=== PATIENT | female | born 1940 | race Caucasian/White ===

== ENCOUNTER 2017-04-30 01:05 | Observation (INO) | payer MEDICARE ==
[2017-04-30] VITALS (17 sets, daily range): BP systolic 102–143; BP diastolic 48–84; PULSE 60–123; RESP 15–20; TEMP 96.2–97.8; O2SAT 94–100
[~2017-04-30] VITALS: Ht 167.6 cm; Wt 71.6 kg
[~2017-04-30 01:05] MED LIST: AMLO5TAB22 PO; ASPI81TA82 PO; CALC600T34 PO; HYDR12.56 PO; KLOR20TA6 PO; LEVA500T PO; METO50TA PO; PROBCAP4 PO; VITA500S3 PO
[2017-04-30] MEDS ORDERED: SODIUM CHLOR 0.9% 1000 ML INJ 1,000 ML IV SCH (01:45)
[2017-04-30] MEDS ORDERED: SODIUM CHLORID 0.9% 500 ML INJ 500 ML IV ONE (01:45)
[2017-04-30] MEDS ORDERED: SODIUM CHLORIDE 0.9% FLUSH 10 ML FLUSH IVF PRN ×2 (01:45→03:30)
[2017-04-30] MEDS ORDERED: DILTIAZEM HCL 25 MG/5 ML VIAL IV ONE (01:45)
[2017-04-30 02:19] LABS: AUTOMATED NEUTROPHIL # 3.2 TH/MM3 (1.8-7.7); BASOPHIL # 0.1 TH/MM3 (0-0.2); BASOPHIL % 0.9 % (0.0-2.0); EOSINOPHIL # 0.3 TH/MM3 (0-0.4); EOSINOPHIL % 3.8 % (0.0-4.0); HEMATOCRIT 43.2 % (35.0-46.0); HEMO FLAGS DIFF FINAL; LYMPHOCYTE # 2.5 TH/MM3 (1.0-4.8); MEAN CELL VOLUME 87.1 FL (80.0-100.0); MEAN CORPUSCULAR HEMOGLOBIN 28.9 PG (27.0-34.0); MEAN CORPUSCULAR HGB CONC 33.2 % (32.0-36.0); NEUT % 50.3 % (16.0-70.0); PLATELET COUNT 277 TH/MM3 (150-450); RED BLOOD COUNT 4.96 MIL/MM3 (4.00-5.30); RED CELL DISTRIBUTION WIDTH 12.1 % (11.6-17.2); WHITE BLOOD COUNT 6.6 TH/MM3 (4.0-11.0)
--- NOTE | 2017-04-30 02:25 | RADRPT ---
EXAM DATE/TIME: 04/30/2017 02:14 [place] COMPARISON: CHEST SINGLE AP, November 16, 2015, 12:36. INDICATIONS : Shortness of breath starting today MEDICAL HISTORY : None. SURGICAL HISTORY : Pacemaker. ENCOUNTER: Initial ACUITY: 1 day PAIN SCORE: 0/10 LOCATION: Bilateral chest FINDINGS: 2 AP views of the chest. Dual-lead cardiac pacemaker in place. The lungs are clear. Cardiomediastinal silhouette within normal limits. No evidence of pleural effusion or pneumothorax. CONCLUSION: No acute cardiopulmonary disease identified. Richi Truong MD on April 30, 2017 at 2:23 Board Certified Radiologist. This report was verified electronically.
[2017-04-30 02:29] LABS: CHLORIDE 99 MEQ/L (98-107); POTASSIUM 3.1 MEQ/L (3.5-5.1); SODIUM (NA) 136 MEQ/L (136-145)
[2017-04-30 02:33] LABS: ANION GAP 11 MEQ/L (5-15); BICARBONATE 26.5 MEQ/L (21.0-32.0); BLOOD UREA NITROGEN 21 MG/DL (7-18); MAGNESIUM 1.9 MG/DL (1.5-2.5)
--- NOTE | 2017-04-30 02:35 | PD ---
HPI Chief Complaint: Respiratory Symptoms Time Seen by Provider: 01:42 Travel History International Travel<30 days: No Contact w/Intl Traveler<30days: No Traveled to known affect area: No History of Present Illness HPI 76-year-old female presents to the emergency department from the [facility] for complaint of shortness of breath. According the patient she just arrived by plane from [facility] where she has been for the past 3 weeks. Patient states she was very active while she was there and does not recall having any shortness of breath or febrile illness while in [place]. Patient denies chest pain. Patient's had no new swelling of the lower extremities or pain in the calves. No history of blood clots or DVT. Patient also denies history of congestive heart failure. Patient has history of sick sinus syndrome with previous pacemaker placement. Patient is under the care of Dr. ruiz as her primary care provider, Dr. Quiroz as her home weatherizing worker, and Dr. Villagran as her manager integrity. Patient has history of COPD. Patient has not been on antibiotic for one year. Patient states that while on the flight she noted some shortness of breath. Patient arrives here complaining of shortness of breath. Patient denies any hemoptysis or productive cough or fever. Patient denies any chest pain or pleuritic chest pain. Patient's had no change in her medications. Patient is unable to identify exacerbating or alleviating factors. PFSH Past Medical History Narrative Medical Asthma, COPD, sick sinus syndrome, dyslipidemia, paroxysmal atrial fibrillation , hypertension, pacemaker, left nephrectomy; no tobacco use no alcohol use and: Nursing notes reviewed Asthma: Yes Heart Rhythm Problems: Yes (6 sinus syndrome) Cancer: No Cardiovascular Problems: Yes (pt has a pacemaker) High Cholesterol: Yes Diabetes: No Diminished Hearing: No Endocrine: No Genitourinary: No Hepatitis: No Hiatal Hernia: No Hypertension: Yes Immune Disorder: No Musculoskeletal: No Neurologic: No Psychiatric: No Reproductive: No Respiratory: Yes (ASTHMA scarring on the lungs) Thyroid Disease: No Tubal Ligation: Yes Past Surgical History AICD: No Cardiac Surgery: Yes (pacemaker) Joint Replacement: No Pacemaker: Yes ( [employer]) Thoracic Surgery: Yes (LEFT NEPHRECTOMY 2001) Other Surgery: Yes Social History Alcohol Use: No Tobacco Use: No Substance Use: No Allergies-Medications (Allergen,Severity, Reaction): Coded Allergies: Chocolate (Verified Allergy, Severe, SOB, 04/30/17) Molds and Smuts (Verified Allergy, Severe, SHORTNESS OF BREATH, 04/30/17) Mustard (Verified Allergy, Severe, SOB, 04/30/17) Cabbage (Verified Allergy, Unknown, short of breath, 04/30/17) Reported Meds & Prescriptions Reported Meds & Active Scripts Active Reported Coq10 (Coenzyme Q10 (Ubidecarenone)) 50 Mg Cap 200 Mg PO DAILY Vitamin B-12 (Cyanocobalamin) 500 Mcg Tab 500 Mcg PO DAILY Vitamin D (Cholecalciferol) 2,000 Unit Cap 1,000 Mg PO DAILY Aspirin 81 (Aspirin) 81 Mg Tabdr 81 Mg PO DAILY K-Tab (Potassium Chloride) 20 Meq Tab 20 Meq PO BID Metoprolol Tartrate 50 Mg Tab 50 Mg PO BID Hydrochlorothiazide 12.5 Mg Tab 25 Mg PO DAILY Review of Systems Except as stated in HPI: all other systems reviewed are Neg General / Constitutional: No: Fever, Chills HENT: No: Headaches (okay) Cardiovascular: No: Chest Pain or Discomfort, Palpitations, Diaphoresis Respiratory: Positive: Shortness of Breath Gastrointestinal: No: Vomiting, Abdominal Pain Genitourinary: No: Flank Pain Musculoskeletal: No: Edema, Pain Skin: No Rash Neurologic: No: Weakness Psychiatric: Positive: Anxiety Hematologic/Lymphatic: No: Lymph Node Enlargement Physical Exam Narrative GENERAL: Well-developed elderly female in moderate distress with work of breathing SKIN: Warm and dry. HEAD: Normocephalic. EYES: No scleral icterus. No injection or drainage. NECK: Supple, trachea midline. No JVD or lymphadenopathy. CARDIOVASCULAR: Increased irregular irregular rate and rhythm without murmurs, gallops, or rubs. RESPIRATORY: Breath sounds equal bilaterally. No accessory muscle use. Lung sounds clear to auscultation in all kwan. GASTROINTESTINAL: Abdomen soft, non-tender, nondistended. MUSCULOSKELETAL: No cyanosis, or edema. Radial and dorsalis pedis pulses 2+ to palpation. BACK: Nontender without obvious deformity. No CVA tenderness. Data Data Last Documented VS Vital Signs Date Time Temp Pulse Resp B/P Pulse Ox O2 Delivery O2 Flow Rate FiO2 04/30/17 03:14 90 20 123/70 100 Nasal Cannula 2 04/30/17 01:21 97.8 Orders Complete Blood Count With Diff (04/30/17 01:42) Comprehensive Metabolic Panel (04/30/17 01:42) B-Type Natriuretic Peptide (04/30/17 01:42) D-Dimer (04/30/17 01:42) Act Partial Throm Time (Ptt) (04/30/17 01:42) Prothrombin Time / Inr (Pt) (04/30/17 01:42) Magnesium (Mg) (04/30/17 01:42) Ckmb (Isoenzyme) Profile (04/30/17 01:42) Troponin I (04/30/17 01:42) Urinalysis - C+S If Indicated (04/30/17 01:42) Blood Culture (04/30/17 01:42) Iv Access Insert/Monitor (04/30/17 01:42) Electrocardiogram (04/30/17 01:42) Ecg Monitoring (04/30/17 01:42) Oximetry (04/30/17 01:42) Oxygen Administration (04/30/17 01:42) Chest, Single Ap (04/30/17 01:42) Sodium Chloride 0.9% Flush (Ns Flush) (04/30/17 01:45) Sodium Chlorid 0.9% 500 Ml Inj (Ns 500 M (04/30/17 01:45) Sodium Chlor 0.9% 1000 Ml Inj (Ns 1000 M (04/30/17 01:45) Lactic Acid (04/30/17 01:42) Diltiazem Inj (Cardizem Inj) (04/30/17 01:45) Albuterol-Ipratropium Neb (Duoneb Neb) (04/30/17 03:00) Methylprednisolone So Succ Inj (Solumedr (04/30/17 03:00) Potassium Chloride (Kcl) (04/30/17 03:00) Diltiazem (Cardizem) (04/30/17 03:30) Admit Order (Ed Use Only) (04/30/17 ) Butcher Helper / Telemetry VIKTORIA.Q8H (04/30/17 03:21) Vital Signs (Adult) Q4H (04/30/17 03:21) Diet Heart Healthy (04/30/17 Breakfast) Activity Oob With Assistance (04/30/17 03:21) ^ Saline Lock (04/30/17 03:21) Resp Oxygen Jacobo C Titrat 1-4 L (04/30/17 ) Notify Dr: Other (04/30/17 03:21) Sodium Chloride 0.9% Flush (Ns Flush) (04/30/17 09:00) Sodium Chloride 0.9% Flush (Ns Flush) (04/30/17 03:30) Labs Laboratory Tests Test 04/30/17 04/30/17 01:50 03:00 White Blood Count 6.6 TH/MM3 Red Blood Count 4.96 MIL/MM3 Hemoglobin 14.3 GM/DL Hematocrit 43.2 % Mean Corpuscular Volume 87.1 FL Mean Corpuscular Hemoglobin 28.9 PG Mean Corpuscular Hemoglobin 33.2 % Concent Red Cell Distribution Width 12.1 % Platelet Count 277 TH/MM3 Mean Platelet Volume 9.2 FL Neutrophils (%) (Auto) 50.3 % Lymphocytes (%) (Auto) 38.0 % Monocytes (%) (Auto) 7.0 % Eosinophils (%) (Auto) 3.8 % Basophils (%) (Auto) 0.9 % Neutrophils # (Auto) 3.2 TH/MM3 Lymphocytes # (Auto) 2.5 TH/MM3 Monocytes # (Auto) 0.5 TH/MM3 Eosinophils # (Auto) 0.3 TH/MM3 Basophils # (Auto) 0.1 TH/MM3 CBC Comment DIFF FINAL Differential Comment Prothrombin Time 10.7 SEC Prothromb Time International 1.0 RATIO Ratio Activated Partial 28.5 SEC Thromboplast Time D-Dimer Quantitative (PE/DVT) 0.39 MG/L FEU Sodium Level 136 MEQ/L Potassium Level 3.1 MEQ/L Chloride Level 99 MEQ/L Carbon Dioxide Level 26.5 MEQ/L Anion Gap 11 MEQ/L Blood Urea Nitrogen 21 MG/DL Creatinine 0.97 MG/DL Estimat Glomerular Filtration 56 ML/MIN Rate Random Glucose 96 MG/DL Lactic Acid Level 3.1 mmol/L Calcium Level 9.4 MG/DL Magnesium Level 1.9 MG/DL Total Bilirubin 0.6 MG/DL Aspartate Amino Transf 20 U/L (AST/SGOT) Alanine Aminotransferase 21 U/L (ALT/SGPT) Alkaline Phosphatase 115 U/L Total Creatine Kinase 61 U/L Troponin I LESS THAN 0.02 NG/ML B-Type Natriuretic Peptide 476 PG/ML Total Protein 7.9 GM/DL Albumin 3.5 GM/DL Urine Color YELLOW Urine Turbidity CLEAR Urine pH 6.0 Urine Specific [place] 1.008 Urine Protein NEG mg/dL Urine Glucose (UA) NEG mg/dL Urine Ketones NEG mg/dL Urine Occult Blood NEG Urine Nitrite NEG Urine Bilirubin NEG Urine Leukocyte Esterase NEG Urine RBC 0-2 /hpf Urine WBC 0-2 /hpf Urine Squamous Epithelial 0-5 /hpf Cells Urine Bacteria NONE /hpf Microscopic Urinalysis Comment CULT NOT INDICATED MDM Medical Decision Making Medical Screen Exam Complete: Yes Emergency Medical Condition: Yes Medical Record Reviewed: Yes Interpretation(s) EKG: Atrial fibrillation with rapid ventricular response rate 110-[address] elevation or injury pattern change noted Differential Diagnosis Dyspnea, CHF, ACS, myocardial infarction, PE, pneumonia, exacerbation COPD, CHF , sepsis Narrative Course Patient placed on teletypesetter monitor IV access obtained EKG performed which is consistent with monitor for atrial fibrillation with rapid ventricular response no acute ST elevation or injury pattern change identified patient ordered weight -based Cardizem 15 mg administered partial dose of 10 mg IV to see if she could tolerate the medication from a rate as well as blood pressure standpoint with plan to administer full dose as necessary Patient clinically improved after 10 mg of Cardizem and additional 5 mg for the total 15 held, not administered. Is now 3 AM CBC with automated differential values are normal range coagulation studies are normal range d-dimer is not elevated at 0.39 CTA for PE protocol will not be performed chemistries remarkable for mild renal insufficiency BUN is 21 with a creatinine of 0.97 GFR 56 potassium is low at 3.1 oral potassium replacement provided bicarbonate and on gap eyes are normal range however lactic acid is elevated at 3.1 CK total is 61, not elevated troponin I is less than 0.02, not elevated BNP is elevated at 476; maintenance fluids at 1 25 cc per hour discontinued. Patient remains atrial fibrillation and intermittently having paced rhythm with occasional PVC as well however rate is variable between primarily 72 and infrequently 135; Cardizem infusion held at this time. Patient remains clinically improved; d-dimer is 0.39, not elevated therefore patient due to history of prior left nephrectomy and renal insufficiency will defer a CT pulmonary angiogram and patient is clinically improved with O2 saturation on room air 100% and no further tachycardia. Patient's case discussed with on-call [facility] medicine. Discussed with Dr Jansen Physician Communication Physician Communication call placed to [facility] call or contact centre manager MD Diagnosis Primary Impression: Paroxysmal a-fib Additional Impressions: Hypokalemia COPD exacerbation CHF (congestive heart failure) Qualified Code: I50.9 - Congestive heart failure, unspecified congestive heart failure chronicity, unspecified congestive heart failure type Admitting Information Admitting Physician Requests: Admit Guera Delgado MD Apr 30, 2017 02:35
[2017-04-30 02:36] LABS: ALT (GPT) 21 U/L (10-53); APTT (PATIENT) 28.5 SEC (24.3-30.1); AST (GOT) 20 U/L (15-37); GLOMERULAR FILTRATION RATE 56 ML/MIN (>89); PROTHROMBIN TIME - PATIENT 10.7 SEC (9.8-11.6)
[2017-04-30 02:38] LABS: TOTAL BILIRUBIN ADULT 0.6 MG/DL (0.2-1.0)
[2017-04-30 02:39] LABS: ALKALINE PHOSPHATASE 115 U/L (45-117)
[2017-04-30 02:40] LABS: CREATINE KINASE 61 U/L (26-192)
[2017-04-30] MEDS ORDERED: METO50TA PO (02:48)
[2017-04-30] MEDS ORDERED: COQ150CA PO (02:48)
[2017-04-30] MEDS ORDERED: ASPI-110 PO (02:48)
[2017-04-30] MEDS ORDERED: VITA200013 PO (02:48)
[2017-04-30] MEDS ORDERED: VITA500T4 PO (02:48)
[2017-04-30] MEDS ORDERED: POTA1TAB4 PO (02:48)
[2017-04-30] MEDS ORDERED: HYDR12.56 PO (02:48)
[2017-04-30] MEDS ORDERED: POTASSIUM CHLORIDE 20 MEQ CONTROLLED RELEASE TAB PO ONE (03:00)
[2017-04-30] MEDS ORDERED: methylPREDNISolone SOD SUCC 125 MG/2 ML VIAL IV PUSH ONE (03:00)
[2017-04-30] MEDS ORDERED: RESP: ALBUTEROL 2.5 MG/IPRATROPIUM 0.5 MG NEB (SCH) NEB ONE (03:00)
[2017-04-30 03:05] LABS: BLOOD, URINE NEG (NEG); GLUCOSE,URINE NEG (NEG); KETONE, URINE NEG (NEG); NITRITE,URINE NEG (NEG)
[2017-04-30 03:09] LABS: URINE COLOR YELLOW (YELLW/STRAW)
[2017-04-30 03:10] LABS: COMMENT (UR) CULT NOT INDICATED; CULTURE IF INDICATED CULT NOT INDICATED; RBC, URINE 0-2 /hpf (0-3); SQUAMOUS EPITHELIAL CELL URINE 0-5 /hpf (0-5); WBC, URINE 0-2 /hpf (0-5)
[2017-04-30] MEDS ORDERED: DILTIAZEM HCL 60 MG TAB PO ONE (03:30)
--- NOTE | 2017-04-30 08:04 | HHI.HP ---
HPI Service [facility] Hospitalists Primary Care Physician Frederick Currie MD Admission Diagnosis AFRVR; dyspnea; copd; hypokalemia; mild chf Chief Complaint: dyspnea, palpitations Travel History International Travel<30 Days: No Contact w/Intl Traveler <30 Da: No Traveled to Known Affected Are: No History of Present Illness 76-year-old female with history of paroxysmal atrial fibrillation presents to the emergency department from the [facility] for complaint of shortness of breath. According the patient she just arrived by plane from [facility] where she has been for the past 3 weeks seeing her 4-year-old grand child. Patient states she was very active while she was there and does not recall having any shortness of breath or febrile illness while in [place]. Patient denies chest pain. Patient's had no new swelling of the lower extremities or pain in the calves. No history of blood clots or DVT. Patient also denies history of congestive heart failure. 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 Patient has history of sick sinus syndrome with previous pacemaker placement. Patient is under the care of Dr. currie as her primary care provider, Dr. Quiroz as her motor vehicle emissions inspector, and Dr. Villagran as her facility manager. Patient has history of bronchiectasis. Patient has not been on antibiotic for over one year. Patient states that while on the flight she noted some shortness of breath and palpitations. Patient arrives here complaining of shortness of breath. Patient denies any hemoptysis or productive cough or fever. Patient denies any chest pain or pleuritic chest pain. Patient's had no recent change in her medications. Review of Systems Constitutional: DENIES: Diaphoretic episodes, Fatigue, Fever, Weight gain, Weight loss, Chills, Dizziness, Change in appetite, Night Sweats Endocrine: DENIES: Abnorml menstrual pattern, Heat/cold intolerance, Polydipsia , Polyuria, Polyphagia Eyes: DENIES: Blurred vision, Diplopia, Eye inflammation, Eye pain, Vision loss , Photosensitivity, Double Vision Ears, nose, mouth, throat: DENIES: Tinnitus, Hearing loss, Vertigo, Nasal discharge, Oral lesions, Throat pain, Hoarseness, Ear Pain, Running Nose, Epistaxis, Sinus Pain, Toothache, Odynophagia Respiratory: COMPLAINS OF: Shortness of breath, DENIES: Apneas, Cough, Snoring , Wheezing, Hemoptysis, Sputum production Cardiovascular: COMPLAINS OF: Palpitations, DENIES: Chest pain, Syncope, Dyspnea on Exertion, PND, Lower Extremity Edema, Orthopnea, Claudication Gastrointestinal: DENIES: Abdominal pain, Black stools, Bloody stools, BRB per rectum, Constipation, Diarrhea, GERD, Nausea, Reflux, Vomiting, Difficulty Swallowing, Anorexia, See HPI Integumentary: DENIES: Abnormal pigmentation, Pruritus, Rash, Nail changes, Breast masses, Breast skin changes, Nipple discharge Hematologic/lymphatic: DENIES: Bruising, Lymphadenopathy Neurologic: COMPLAINS OF: Tremor Psychiatric: DENIES: Anxiety, Confusion, Mood changes, Depression, Hallucinations, Agitation, Suicidal Ideation, Homicidal Ideation, Delusions, History of Bipolar, History of Schizophrenia Past Family Social History Past Medical History Aortic atherosclerosis Atypical mycobacterial infection of the lung Bronchiectasis Lumbar degenerative disc disease Extrapyramidal disorder Hypertension Hyperlipidemia Paroxysmal atrial fibrillation PSVT Past Surgical History She's had at least 2 bronchoscopies with the last one being in 2015 no malignant cells noted Left nephrectomy for benign tumor Pacemaker placement in 2009 Tonsillectomy and adenoidectomy as a child Reported Medications Aspirin 81 mg a day CoQ10 200 mg twice a day HCTZ 25 mg daily Metoprolol 50 mg twice daily Potassium extended release 10 mEq 2 tablets twice a day B12 500 g a day Vitamin D3 1000 units a day Allergies: Coded Allergies: Chocolate (Verified Allergy, Severe, SOB, 04/30/17) Molds and Smuts (Verified Allergy, Severe, SHORTNESS OF BREATH, 04/30/17) Mustard (Verified Allergy, Severe, SOB, 04/30/17) Cabbage (Verified Allergy, Unknown, short of breath, 04/30/17) Family History nc Social History Never a smoker, rare to no alcohol use 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 Physical Exam Vital Signs Vital Signs Date Time Temp Pulse Resp B/P Pulse Ox O2 Delivery O2 Flow Rate FiO2 04/30/17 05:21 102 04/30/17 05:00 97.0 123 16 133/70 99 04/30/17 04:21 72 20 108/79 98 04/30/17 03:44 106 20 143/84 98 Nasal Cannula 2 04/30/17 03:30 97 21 04/30/17 03:14 90 20 123/70 100 Nasal Cannula 2 04/30/17 02:44 74 20 127/48 100 Nasal Cannula 2 04/30/17 02:33 77 20 102/67 100 Nasal Cannula 4 04/30/17 02:33 94 4 04/30/17 02:16 76 20 102/67 98 Nasal Cannula 2 04/30/17 01:44 116 20 123/81 94 Nasal Cannula 4 04/30/17 01:30 100 20 98 Nasal Cannula 2 04/30/17 01:21 97.8 98 16 134/83 100 Physical Exam GENERAL: This is a well-nourished, well-developed patient, in no apparent distress. Alert and oriented. SKIN: No rashes, ecchymoses or lesions. Cool and dry. HEAD: Atraumatic. Normocephalic. No temporal or scalp tenderness. EYES: Pupils equal round and reactive. Extraocular motions intact. No scleral icterus. No injection or drainage. ENT: Nose without bleeding, purulent drainage or septal hematoma. Airway patent. NECK: Trachea midline. No JVD or lymphadenopathy. Supple, nontender, no meningeal signs. CARDIOVASCULAR: Irregularly irregular rhythm with rate in the low 100s without murmurs, gallops, or rubs. RESPIRATORY: Clear to auscultation. Breath sounds equal bilaterally. No wheezes , rales, or rhonchi. GASTROINTESTINAL: Abdomen soft, non-tender, nondistended. No hepato-splenomegaly , or palpable masses. No guarding. MUSCULOSKELETAL: Extremities without clubbing, cyanosis, or edema. No joint tenderness, effusion, or edema noted. No calf tenderness. NEUROLOGICAL: Awake and alert. Cranial nerves II through XII intact. Motor and sensory grossly within normal limits. Five out of 5 muscle strength in all muscle groups. Normal speech. Laboratory Laboratory Tests Test 04/30/17 04/30/17 01:50 03:00 White Blood Count 6.6 Red Blood Count 4.96 Hemoglobin 14.3 Hematocrit 43.2 Mean Corpuscular Volume 87.1 Mean Corpuscular Hemoglobin 28.9 Mean Corpuscular Hemoglobin 33.2 Concent Red Cell Distribution Width 12.1 Platelet Count 277 Mean Platelet Volume 9.2 Neutrophils (%) (Auto) 50.3 Lymphocytes (%) (Auto) 38.0 Monocytes (%) (Auto) 7.0 Eosinophils (%) (Auto) 3.8 Basophils (%) (Auto) 0.9 Neutrophils # (Auto) 3.2 Lymphocytes # (Auto) 2.5 Monocytes # (Auto) 0.5 Eosinophils # (Auto) 0.3 Basophils # (Auto) 0.1 CBC Comment DIFF FINAL Differential Comment Prothrombin Time 10.7 Prothromb Time International 1.0 Ratio Activated Partial 28.5 Thromboplast Time D-Dimer Quantitative (PE/DVT) 0.39 Sodium Level 136 Potassium Level 3.1 Chloride Level 99 Carbon Dioxide Level 26.5 Anion Gap 11 Blood Urea Nitrogen 21 Creatinine 0.97 Estimat Glomerular Filtration 56 Rate Random Glucose 96 Lactic Acid Level 3.1 Calcium Level 9.4 Magnesium Level 1.9 Total Bilirubin 0.6 Aspartate Amino Transf 20 (AST/SGOT) Alanine Aminotransferase 21 (ALT/SGPT) Alkaline Phosphatase 115 Total Creatine Kinase 61 Troponin I LESS THAN 0.02 B-Type Natriuretic Peptide 476 Total Protein 7.9 Albumin 3.5 Urine Color YELLOW Urine Turbidity CLEAR Urine pH 6.0 Urine Specific [place] 1.008 Urine Protein NEG Urine Glucose (UA) NEG Urine Ketones NEG Urine Occult Blood NEG Urine Nitrite NEG Urine Bilirubin NEG Urine Leukocyte Esterase NEG Urine RBC 0-2 Urine WBC 0-2 Urine Squamous Epithelial 0-5 Cells Urine Bacteria NONE Microscopic Urinalysis Comment CULT NOT INDICATED Date/Time Procedure Status Source Growth 04/30/17 02:00 Aerobic Blood Culture Received Blood Peripheral Pending 04/30/17 02:00 Anaerobic Blood Culture Received Blood Peripheral Pending Result Diagram: 04/30/17 0150 04/30/17 0150 Imaging Last 72 hours Impressions Chest X-Ray 04/30/17 0142 Signed Impressions: Service Date/Time: April 02:14 - CONCLUSION: No acute cardiopulmonary disease identified. Richi Truong MD Assessment and Plan Problem List: (1) Paroxysmal a-fib Status: Acute Plan: Recurrent issue. Her chads 2 vasc score is 3. We have discussed possible need or benefit of alternative oral anticoagulant agent or warfarin. We'll check echocardiogram. Attempt to better control rate. Correct K+ Likely source of her dyspnea. Dyspnea has resolved with better rate control. I have left a message for Dr. Peace and cardiology to discuss with me. (2) Hypokalemia Status: Acute Plan: Replace and repeat (3) CHF (congestive heart failure) Status: Acute Plan: No overt failure at this point. We'll check echo as it has been quite some time. (4) Hypertension Status: Chronic Plan: Continue medication. (5) Hyperlipidemia Status: Chronic Plan: Continue outpatient therapy. Code Status full Discussed Condition With Pt, ER provider. Problem Qualifiers (1) CHF (congestive heart failure): Qualified Code: I50.9 - Congestive heart failure, unspecified congestive heart failure chronicity, unspecified congestive heart failure type (2) Hypertension: Qualified Code: I10 - Essential hypertension Ra Jansen MD PhD Apr 30, 2017 08:04
--- NOTE | 2017-04-30 08:28 | EKG ---
Date Performed: 04/30/2017 Time Performed: 08:01:02 PTAGE: 76 years EKG: ATRIAL FIBRILLATION WITH RAPID VENTRICULAR RESPONSE NONSPECIFIC ST & T-WAVE ABNORMALITY ABN ORMAL RHYTHM ECG PREVIOUS TRACING : 04/30/2017 02.41 Compared to previous tracing, heart rate has increased. DOCTOR: Leandro Mena Interpretating Date/Time 04/30/2017 08:26:12
--- NOTE | 2017-04-30 08:32 | EKG ---
Date Performed: 04/30/2017 Time Performed: 01:42:22 PTAGE: 76 years EKG: ATRIAL FIBRILLATION WITH RAPID VENTRICULAR RESPONSE NONSPECIFIC ST DEPRESSION ABNORMAL ECG PREVIOUS TRACING : 11/16/2015 09.53 Compared to previous tracing, atrial fibrillation has repla angelique atrial paced rhythm, heart rate has increased. DOCTOR: Leandro Mena Interpretating Date/Time 04/30/2017 08:30:50
--- NOTE | 2017-04-30 08:32 | EKG ---
Date Performed: 04/30/2017 Time Performed: 02:41:45 PTAGE: 76 years EKG: ATRIAL FIBRILLATION NONSPECIFIC ST DEPRESSION ABNORMAL ECG PREVIOUS TRACING : 04/30/2017 01.42 No significant change from previous tracing noted. DOCTOR: Leandro Mena Interpretating Date/Time 04/30/2017 08:30:13
[2017-04-30] MEDS: SODIUM CHLORIDE 0.9% FLUSH 10 ML FLUSH IV FLUSH SCH ×2 (08:40→21:00)
[2017-04-30] MEDS ORDERED: PILL SPLITTER OTHER PRN (09:00)
[2017-04-30] MEDS ORDERED: CYANOCOBALAMIN 1,000 MCG TAB PO SCH (09:00)
[2017-04-30] MEDS ORDERED: CHOLECALCIFEROL (VIT D3) 1000 UNIT TAB PO SCH (09:00)
[2017-04-30] MEDS ORDERED: NON-FORMULARY DRUG (Coenzyme Q10 (Ubidecarenone) (Coq10) 200 MG) PO SCH (09:00)
[2017-04-30] MEDS ORDERED: ASPIRIN EC 81 MG TABEC PO SCH (09:00)
[2017-04-30 09:06] LABS: CHLORIDE 106 MEQ/L (98-107); POTASSIUM 3.3 MEQ/L (3.5-5.1); SODIUM (NA) 141 MEQ/L (136-145)
[2017-04-30] MEDS: POTASSIUM CHLORIDE 20 MEQ CONTROLLED RELEASE TAB PO SCH ×2 (09:06→20:53)
[2017-04-30] MEDS: METOPROLOL TARTRATE 50 MG TAB PO SCH ×2 (09:06→21:00)
[2017-04-30 09:09] LABS: ANION GAP 10 MEQ/L (5-15); BICARBONATE 24.9 MEQ/L (21.0-32.0); BLOOD UREA NITROGEN 17 MG/DL (7-18)
[2017-04-30] MEDS: DILTIAZEM HCL 60 MG TAB PO SCH ×3 (09:09→22:00)
[2017-04-30 09:12] LABS: GLOMERULAR FILTRATION RATE 79 ML/MIN (>89)
[2017-04-30 09:18] LABS: CREATINE KINASE 46 U/L (26-192)
[2017-04-30 15:54] LABS: HDL CHOLESTEROL 62.7 MG/DL (40.0-60.0)
--- NOTE | 2017-04-30 17:45 | ECHRPT ---
Indication: ATRIAL FIBRILLATION CONCLUSIONS Normal left ventricular size. [id number] concentric left ventricular hypertrophy. This study was not technically sufficient to allow for evaluation of left ventricular diastolic func tion. No regional wall motion abnormalities are present. The left ventricular systolic function is normal with an estimated ejection fraction in the range of 55-60%. The left atrial size is mildly dilated. Pacemaker wire seen in the right heart. Bi atrial enlargement. Structurally normal mitral valve. Gfry-pg-[id number] mitral valve regurgitation. BP: 109 / 72 HR: 109 Rhythm: Atrial fibrillation MEASUREMENTS (Male / Female) Normal Values Technical Quality:Fair 2D ECHO LV Diastolic Diameter PLAX 3.8 cm 4.2 - 5.9 / 3.9 - 5.3 cm LV Systolic Diameter PLAX 2.7 cm IVS Diastolic Thickness 1.0 cm 0.6 - 1.0 / 0.6 - 0.9 cm LVPW Diastolic Thickness 1.0 cm 0.6 - 1.0 / 0.6 - 0.9 cm LV Relative Wall Thickness 0.5 LVOT Diameter 1.9 cm Aortic Root Diameter 2.5 cm LA Systolic Diameter LX 3.2 cm 3.0 - 4.0 / 2.7 - 3.8 cm M-MODE AV Cusp Separation MM 1.6 cm DOPPLER AV Peak Velocity 129.3 cm/s AV Peak Gradient 6.7 mmHg AV Mean Gradient 4.0 mmHg AV Velocity Time Integral 22.6 cm LVOT Peak Velocity 73.8 cm/s LVOT Peak Gradient 2.2 mmHg LVOT Velocity Time Integral 12.0 cm LVOT Cardiac Index 2053.8 cm/minm AV Area Cont Eq vti 1.5 cm AV Area Cont Eq pk 1.6 cm Mitral E Point Velocity 74.9 cm/s LV E' Lateral Velocity 12.0 cm/s Mitral E to LV E' Lateral Ratio 6.2 LV E' Septal Velocity 8.5 cm/s Mitral E to LV E' Septal Ratio 8.8 TR Peak Velocity 210.0 cm/s TR Peak Gradient 17.6 mmHg PV Peak Velocity 65.4 cm/s PV Peak Gradient 1.7 mmHg FINDINGS LEFT VENTRICLE Normal left ventricular size. Cyln-la-reohrjnd concentric left ventricular hypertrophy. This study was not technically sufficient to allow for evaluation of left ventricular diastolic func tion. No regional wall motion abnormalities are present. The left ventricular systolic function is normal with an estimated ejection fraction in the range of 55-60%. RIGHT VENTRICLE Normal right ventricular size and systolic function. LEFT ATRIUM The left atrial size is mildly dilated. RIGHT ATRIUM The right atrial size is normal. ATRIAL SEPTUM Normal atrial septal thickness without atrial level shunting by limited color doppler interrogation. AORTA The aortic root and proximal ascending aorta are normal in size on limited imaging. MITRAL VALVE Structurally normal mitral valve. Ybgy-hk-xeukygak mitral valve regurgitation. AORTIC VALVE Trileaflet aortic valve. No aortic valve stenosis or regurgitation. TRICUSPID VALVE There is mild to moderate tricuspid valve regurgitation. Mild thickening of the tricuspid valve leaflets. PULMONARY VALVE The pulmonary valve is not well visualized. VESSELS The inferior vena cava is normal in size. PERICARDIUM No pericardial effusion. Prashanth Peace MD, FACC (Electronically Signed) Final Date:30 April 2017 17:44
[2017-05-01] VITALS: BP 131/66; PULSE 71; RESP 16; TEMP 95.8; O2SAT 98
[2017-05-01] MEDS: DILTIAZEM HCL 60 MG TAB PO SCH (05:33)
[2017-05-01 07:39] LABS: BICARBONATE 26.8 MEQ/L (21.0-32.0)
[2017-05-01 08:00] VITALS: BP 127/65; PULSE 60; RESP 18; TEMP 97.3; O2SAT 99
--- NOTE | 2017-05-01 08:27 | HHI.PR ---
Subjective Remarks Doing well. No chest pain or shortness of breath. Appears to have converted back to sinus rhythm yesterday afternoon. Objective Vitals Vital Signs Date Time Temp Pulse Resp B/P Pulse Ox O2 Delivery O2 Flow Rate FiO2 05/01/17 00:00 95.8 71 16 131/66 98 04/30/17 20:00 96.2 60 16 137/64 97 04/30/17 19:40 98 21 04/30/17 18:28 96.6 60 15 114/50 98 04/30/17 12:00 96.5 117 18 119/62 99 04/30/17 09:48 96.3 109 16 109/72 98 04/30/17 08:28 98 21 04/30/17 04/30/17 05/01/17 15:00 23:00 07:00 Intake Total 240 ml Balance 240 ml Intake Oral 240 ml # Voids 2 # Bowel Movements 0 GENERAL: No acute distress, alert and oriented, cooperative with exam. SKIN: Warm and dry. HEAD: Normocephalic. EYES: No scleral icterus. No injection or drainage. NECK: Supple, trachea midline. No JVD or lymphadenopathy. CARDIOVASCULAR: Regular rate and rhythm without murmurs, gallops, or rubs. Rate in 60s. RESPIRATORY: Breath sounds equal bilaterally. No accessory muscle use. GASTROINTESTINAL: Abdomen soft, non-tender, nondistended. MUSCULOSKELETAL: No cyanosis, or edema. Result Diagram: 04/30/17 0150 05/01/17 0650 Imaging Last 72 hours Impressions Chest X-Ray 04/30/17 0142 Signed Impressions: Service Date/Time: April 02:14 - CONCLUSION: No acute cardiopulmonary disease identified. Richi Truong MD Urinary Catheter: No Vascular Central Line Catheter: No A/P Problem List: (1) Paroxysmal a-fib Status: Acute Plan: Recurrent issue. Her chads 2 vasc score is 3. We have discussed possible need or benefit of alternative oral anticoagulant agent or warfarin. Echo noted and potassium corrected. Dyspnea has resolved with better rate control. Discussed with Dr. lorenzo in cardiology yesterday. Patient has upcoming appointment with her planer hand next week. She will discuss possibility of alternative oral anticoagulant and statin medication with her planer hand at visit. She was hesitant to start a different anticoagulant or statin at this point. (2) Hypokalemia Status: Acute Plan: Repeat value is 4.0 (3) CHF (congestive heart failure) Status: Acute Plan: Echo noted. CHF likely entered in error on previous records. No overt failure on exam. She may have some diastolic dysfunction given the dilatation of her atria. (4) Hypertension Status: Chronic Plan: Will decrease metoprolol and add long-acting calcium channel zonia. We'll stop the regular use of HCTZ but she may still use if she develops edema. (5) Hyperlipidemia Status: Chronic Plan: Continue outpatient therapy. She declines statin at this point. Discharge Planning Discharge home. Problem Qualifiers (1) CHF (congestive heart failure): Qualified Code: I50.9 - Congestive heart failure, unspecified congestive heart failure chronicity, unspecified congestive heart failure type (2) Hypertension: Qualified Code: I10 - Essential hypertension Ra Jansen MD PhD May 01, 2017 08:27
[2017-05-01] MEDS ORDERED: HYDR25TA5 PO (08:30)
[2017-05-01] MEDS ORDERED: POTA10CA PO (08:30)
[2017-05-01] MEDS ORDERED: METO25TA3 PO (08:30)
[2017-05-01] MEDS ORDERED: DILT-60 PO (08:30)
== END 2017-05-01 09:27 | disposition home or self-care (01) ==
LOC: PHED 01:05 → PHEDA 03:23 → UNDOADMIN 03:23 → PHEDA 03:23 → PH3A 04:37
PROVIDERS: ADMIT Family Medicine; ATTEND Family Medicine
DX: I11.0 Hypertensive heart disease with heart failure (principal); I50.9 Heart failure, unspecified; J44.1 Chronic obstructive pulmonary disease with (acute) exacerbation; R94.31 Abnormal electrocardiogram [ECG] [EKG]; R00.2 Palpitations; I48.0 Paroxysmal atrial fibrillation; I70.0 Atherosclerosis of aorta; E78.5 Hyperlipidemia, unspecified; E78.00 Pure hypercholesterolemia, unspecified; J45.909 Unspecified asthma, uncomplicated; F41.9 Anxiety disorder, unspecified; E87.6 Hypokalemia; Z90.5 Acquired absence of kidney; Z95.0 Presence of cardiac pacemaker; Z79.899 Other long term (current) drug therapy; Z79.82 Long term (current) use of aspirin
CPT/HCPCS: 71010; 80048; 80053; 80061; 81001; 82550; 83605; 83735; 83880; 84484; 85025; 85379; 85610; 85730; 87040; 93005; 93306; 94664; 96374; 99285; G0378; J2930; J7030; J7040

== ENCOUNTER 2017-11-20 07:05 | Day surgery (SDC) | payer MEDICARE ==
[~2017-11-20 07:05] MED LIST changes: -AMLO5TAB22 PO; +ASPI1TAB57 PO; -ASPI81TA82 PO; -CALC600T34 PO; +COQ150CA PO; +DILT120C50 PO; +HYDR25TA5 PO; -KLOR20TA6 PO; -LEVA500T PO; +METO25TA3 PO; +POTA10CA PO; +POTA1TAB4 PO; -PROBCAP4 PO; +VITA200013 PO; -VITA500S3 PO; +VITA500T4 PO
[2017-11-20] MEDS ORDERED: SODIUM CHLORIDE 0.9% 1000 ML IV SCH (07:45)
[2017-11-20] MEDS ORDERED: ceFAZolin 2 GM PREMIX 50 ML - gastrostomy and jejunostomy initial insertion IV SCH (07:45)
[2017-11-20] MEDS ORDERED: FURO20TA PO (08:05)
[2017-11-20] MEDS ORDERED: ATOR40TA16 PO (08:05)
[2017-11-20] MEDS ORDERED: VENTAER INH (08:05)
[2017-11-20] MEDS ORDERED: CART120C PO (08:05)
[2017-11-20] MEDS ORDERED: WARF-23 PO (08:05)
--- NOTE | 2017-11-20 09:37 | MA ---
cc: BRENNEN RAMOS MD DATE 11/20/2017 PROCEDURE PERFORMED The patient was anesthetized with Diprivan. A cardioversion was done under sync with 30 joules converting from atrial flutter to sinus rhythm. There were no complications. MD VICKY Caal/ALEA /8:56 AM /9:28 AM
--- NOTE | 2017-11-20 21:04 | EKG ---
Date Performed: 11/20/2017 Time Performed: 07:47:04 PTAGE: 77 years EKG: Atrial flutter with controlled rate Inferior ST elevation suggests early repolarization Inf erior T wave changes are nonspecific Compared to previous tracing rate is slower Abnormal ECG PREVIOUS TRACING : 04/30/2017 08.01 DOCTOR: Jay Cabral Interpretating Date/Time 11/20/2017 21:03:19
--- NOTE | 2017-11-20 21:04 | EKG ---
Date Performed: 11/20/2017 Time Performed: 09:17:10 PTAGE: 77 years EKG: Sinus rhythm Inferior T wave changes are nonspecific Left atrial abnormality Compared to previous tracing, patien t is no longer in atrial flutter Borderline ECG PREVIOUS TRACING : 11/20/2017 07.47 DOCTOR: Jay Cabral Interpretating Date/Time 11/20/2017 21:04:20
== END 2017-11-20 10:06 | disposition home or self-care (01) ==
LOC: HDOC 07:05 → HDIC 07:06 → HDOC 10:06
PROVIDERS: ATTEND Internal Medicine Cardiovascular Disease
DX: I48.92 Unspecified atrial flutter (principal); I48.0 Paroxysmal atrial fibrillation; I50.9 Heart failure, unspecified; Z79.01 Long term (current) use of anticoagulants
CPT/HCPCS: 00410; 92960; 93005; J7030

== ENCOUNTER 2018-03-11 16:34 | Inpatient (IN) | payer MEDICARE ==
[~2018-03-11] VITALS: Ht 167.6 cm; Wt 71.9 kg
[~2018-03-11 16:34] MED LIST changes: +ATOR40TA16 PO; +CART120C PO; -DILT120C50 PO; +FURO20TA PO; -HYDR12.56 PO; -HYDR25TA5 PO; -METO50TA PO; -POTA1TAB4 PO; +VENTAER INH; +WARF-23 PO
[2018-03-11 16:42] VITALS: BP 155/66; PULSE 60; RESP 18; TEMP 97.8; O2SAT 98
[2018-03-11] MEDS ORDERED: PROCHLORPERAZINE INJ 10 MG/2 ML VIAL IV PUSH ONE (17:30)
[2018-03-11] MEDS ORDERED: diphenhydrAMINE HCL 50 MG/ML VIAL IV PUSH ONE (17:30)
[2018-03-11 17:54] VITALS: BP 177/75; PULSE 76; RESP 17; O2SAT 99
[2018-03-11 18:07] LABS: AUTOMATED NEUTROPHIL # 7.6 TH/MM3 (1.8-7.7); BASOPHIL % 0.4 % (0.0-2.0); EOSINOPHIL % 0.3 % (0.0-4.0); HEMATOCRIT 44.1 % (35.0-46.0); HEMOGLOBIN 14.8 GM/DL (11.6-15.3); LYMPH % 9.7 % (9.0-44.0); LYMPHOCYTE # 0.9 TH/MM3 (1.0-4.8); MEAN CELL VOLUME 89.6 FL (80.0-100.0); MEAN CORPUSCULAR HGB CONC 33.4 % (32.0-36.0); MONO % 3.5 % (0.0-8.0); MONOCYTE # 0.3 TH/MM3 (0-0.9); NEUT % 86.1 % (16.0-70.0); PLATELET COUNT 317 TH/MM3 (150-450); RED BLOOD COUNT 4.93 MIL/MM3 (4.00-5.30); RED CELL DISTRIBUTION WIDTH 14.3 % (11.6-17.2); WHITE BLOOD COUNT 8.8 TH/MM3 (4.0-11.0)
[2018-03-11 18:16] LABS: PROTHROMBIN TIME - PATIENT 72.1 SEC (9.8-11.6)
[2018-03-11 18:31] LABS: INTERNATIONAL NORMALIZED RATIO 7.2 RATIO
[2018-03-11 18:39] LABS: ALKALINE PHOSPHATASE 134 U/L (45-117); ALT (GPT) 27 U/L (10-53); TOTAL BILIRUBIN ADULT 0.9 MG/DL (0.2-1.0); TOTAL PROTEIN 8.7 GM/DL (6.4-8.2)
[2018-03-11 18:43] LABS: ALBUMIN 3.5 GM/DL (3.4-5.0); AST (GOT) 23 U/L (15-37); BICARBONATE 27.9 MEQ/L (21.0-32.0); BLOOD UREA NITROGEN 12 MG/DL (7-18); CALCIUM 9.3 MG/DL (8.5-10.1); CHLORIDE 96 MEQ/L (98-107); CREATININE 1.08 MG/DL (0.50-1.00); GLOMERULAR FILTRATION RATE 49 ML/MIN (>89); GLUCOSE,RANDOM 123 MG/DL (74-106); SODIUM (NA) 135 MEQ/L (136-145)
--- NOTE | 2018-03-11 18:44 | RADRPT ---
EXAM DATE: 03/11/2018 6:36 PM EDT AGE/SEX: 77 years / Female INDICATIONS: Headache CLINICAL DATA: This is the patient's initial encounter. Patient reports that signs and symptoms have been present for 1 week and indicates a pain score of 4/10. MEDICAL/SURGICAL HISTORY: Cardiovascular disease. Hypertension. Asthma. Tubal ligation. Hysterec ashley. Pacemaker. RADIATION DOSE: 56.35 CTDI (mGy) COMPARISON: 02/26/2017. TECHNIQUE: CT of the head without contrast. Using automated exposure control and adjustment of the mA and/or kV according to patient size, radiation dose was kept as low as reasonably achievable to ob tain optimal diagnostic quality images. FINDINGS: Cerebrum: There are new bilateral subdural collections which are of mixed density. On the right ther e is an acute high density hemorrhage over the right parietal lobe measuring up to approximately 11 m m in greatest transverse diameter. There are lower attenuation areas over the right frontal lobe. On the left there are low attenuation collections over the frontal and parietal lobes with more ill-defi rose high density along the left parietal lobe which measures up to approximately 5 to 6 mm. There is ill-defined increased density along the falx as well. The anterior horns of the lateral ventricles ar e smaller than on the prior study and appear mildly compressed. No evidence of midline shift, mass le sonja, or acute infarction. No extraaxial fluid collections are seen. Posterior Fossa: The cerebellum and brainstem are intact. The 4th ventricle is midline. The cerebe llopontine angle is unremarkable. Extracranial: The visualized portion of the orbits is intact. Skull: The calvaria is intact. No evidence of skull fracture. CONCLUSION: 1. New, mixed density bilateral subdural hematomas with areas of bilateral high density more acute h emorrhage. 2. There is high density hemorrhage along the cerebral falx as well. 3. Compression of the anterior horns of the lateral ventricles which are smaller in size. There is n o midline shift. Electronically signed by: Gonzalo Ramírez MD 03/11/2018 6:43 PM EDT
--- NOTE | 2018-03-11 19:45 | PD ---
HPI Chief Complaint: Headache Time Seen by Provider: 16:56 Travel History International Travel<30 days: No Contact w/Intl Traveler<30days: No Traveled to known affect area: No History of Present Illness HPI This is a 77-year-old female who presents to the emergency department having associated with some generalized weakness and lethargy. She denies any difficulty walking or talking. She denies any vomiting. She is on Coumadin for atrial fibrillation. They went to an urgent care prior to arrival and they were told to come here for further imaging. Patient does have a history of migraines but she has not had a migraine in 20 years and this is unusual for her. 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) Migraines: No Renal Failure: No Seizures: No Sleep Apnea: No Thyroid Disease: No Ulcer: No ?: Not Tubal Ligation: Yes Past Surgical History Abdominal Surgery: No AICD: No Cardiac Surgery: Yes (pacemaker for sss) Ear Surgery: No Endocrine Surgery: No Eye Surgery: No Genitourinary Surgery: Yes (left nephectromy) Gynecologic Surgery: No Joint Replacement: No Oral Surgery: No Pacemaker: Yes ( [employer]) Thoracic Surgery: Yes (LEFT NEPHRECTOMY 2001) Other Surgery: Yes Social History Alcohol Use: Yes (occ) Tobacco Use: No Substance Use: No Allergies-Medications (Allergen,Severity, Reaction): Coded Allergies: apixaban (Verified Allergy, Severe, 11/20/17) chocolate flavor (Unverified Allergy, Severe, SOB, 06/02/17) mold (Unverified Allergy, Severe, SHORTNESS OF BREATH, 06/02/17) mustard (Unverified Allergy, Severe, SOB, 06/02/17) cabbage (Unverified Allergy, Unknown, short of breath, 06/02/17) Reported Meds & Prescriptions Reported Meds & Active Scripts Active Potassium Chloride ER (Potassium Chloride) 10 Meq Cap 10 Meq PO DAILY Metoprolol Tartrate 25 Mg Tab 25 Mg PO BID Reported Warfarin 5 Mg Tab 5 Mg PO DAILY Ventolin Hfa 18 GM Inh (Albuterol Sulfate) 90 Mcg/Act Aer 2 Puff INH Q4-6H PRN Atorvastatin (Atorvastatin Calcium) 40 Mg Tab 40 Mg PO HS Cartia Xt (Diltiazem ER 24 HR) 120 Mg Caper 120 Mg PO DAILY Furosemide 20 Mg Tab 20 Mg PO DAILY Coq10 (Coenzyme Q10 (Ubidecarenone)) 50 Mg Cap 200 Mg PO DAILY Vitamin B-12 (Cyanocobalamin) 500 Mcg Tab 500 Mcg PO DAILY Vitamin D (Cholecalciferol) 2,000 Unit Cap 1,000 Mg PO DAILY Review of Systems Except as stated in HPI: all other systems reviewed are Neg Physical Exam Narrative GENERAL: Well-appearing, frail elderly female SKIN: Focused skin assessment warm and dry. HEAD: Atraumatic. Normocephalic. EYES: Pupils equal and round. No injection or drainage. ENT: Moist mucous membranes NECK: Trachea midline. CARDIOVASCULAR: Regular rate and rhythm. No murmur appreciated. RESPIRATORY: Clear to auscultation. Breath sounds equal bilaterally. GASTROINTESTINAL: Abdomen soft, non-tender, nondistended. MUSCULOSKELETAL: No obvious deformities. NEUROLOGICAL: Awake and alert. No obvious cranial nerve deficits. No dysarthria or aphasia. Resting tremor in the left upper extremity, no upper extremity ataxia PSYCHIATRIC: Appropriate mood and affect; insight and judgment normal. Data Data Last Documented VS Vital Signs Date Time Temp Pulse Resp B/P (MAP) Pulse Ox O2 Delivery O2 Flow Rate FiO2 03/11/18 17:54 76 17 177/75 (109) 99 Room Air 03/11/18 16:42 97.8 Orders Orders Complete Blood Count With Diff (03/11/18 17:16) Comprehensive Metabolic Panel (03/11/18 17:16) ^ Insert Iv (03/11/18 17:16) Ct Brain W/O Iv Contrast(Rout) (03/11/18 ) Urinalysis - C+S If Indicated (03/11/18 17:16) Prothrombin Time / Inr (Pt) (03/11/18 17:16) Prochlorperazine Inj (Compazine Inj) (03/11/18 17:30) Diphenhydramine Inj (Benadryl Inj) (03/11/18 17:30) Red Blood Cells (Rbc) (03/11/18 18:53) Blood Product Administration (03/11/18 18:53) Sodium Chlor 0.9% 250 Ml Inj (Ns 250 Ml (03/11/18 19:00) Phytonadione Inj (Vitamin K Inj) (03/11/18 20:00) Act Partial Throm Time (Ptt) (03/11/18 18:55) Type And Screen (03/11/18 18:53) ^ Lab Follow Up (03/11/18 19:50) Labs Laboratory Tests Test 03/11/18 17:30 White Blood Count 8.8 TH/MM3 Red Blood Count 4.93 MIL/MM3 Hemoglobin 14.8 GM/DL Hematocrit 44.1 % Mean Corpuscular Volume 89.6 FL Mean Corpuscular Hemoglobin 30.0 PG Mean Corpuscular Hemoglobin Concent 33.4 % Red Cell Distribution Width 14.3 % Platelet Count 317 TH/MM3 Mean Platelet Volume 9.0 FL Neutrophils (%) (Auto) 86.1 % Lymphocytes (%) (Auto) 9.7 % Monocytes (%) (Auto) 3.5 % Eosinophils (%) (Auto) 0.3 % Basophils (%) (Auto) 0.4 % Neutrophils # (Auto) 7.6 TH/MM3 Lymphocytes # (Auto) 0.9 TH/MM3 Monocytes # (Auto) 0.3 TH/MM3 Eosinophils # (Auto) 0.0 TH/MM3 Basophils # (Auto) 0.0 TH/MM3 CBC Comment DIFF FINAL Differential Comment Prothrombin Time 72.1 SEC Prothromb Time International Ratio 7.2 RATIO Blood Urea Nitrogen 12 MG/DL Creatinine 1.08 MG/DL Random Glucose 123 MG/DL Total Protein 8.7 GM/DL Albumin 3.5 GM/DL Calcium Level 9.3 MG/DL Alkaline Phosphatase 134 U/L Aspartate Amino Transf (AST/SGOT) 23 U/L Alanine Aminotransferase (ALT/SGPT) 27 U/L Total Bilirubin 0.9 MG/DL Sodium Level 135 MEQ/L Potassium Level 3.1 MEQ/L Chloride Level 96 MEQ/L Carbon Dioxide Level 27.9 MEQ/L Anion Gap 11 MEQ/L Estimat Glomerular Filtration Rate 49 ML/MIN MDM Medical Decision Making Medical Screen Exam Complete: Yes Emergency Medical Condition: Yes Interpretation(s) Afebrile, no tachycardia, hypertensive No leukocytosis Electrolytes are reassuring INR 7.2 Differential Diagnosis Subarachnoid hemorrhage, migraine headache, subdural hematoma, tension headache Narrative Course This is a 77-year-old female who presents to the emergency department with a gradual onset headache it has been going on for 1 week. She is placed on a monitor and an IV was established. Labs demonstrate an INR of 7.2. CT demonstrates bilateral subdural hematomas with no midline shift. She has a nonfocal neurologic exam but is somewhat slow to answer questions. She was given vitamin K and 3500 units of K Centra. She will be admitted to the surgical intensive care unit for close monitoring. I discussed the case with Dr. Aponte and Dr. Le. Physician Communication Physician Communication Discussed with Dr. Le and Dr. Aponte Diagnosis Primary Impression: Subdural hematoma Additional Impression: Supratherapeutic INR Admitting Information Admitting Physician Requests: Admit Mona Khan MD March 11, 2018 19:45
--- NOTE | 2018-03-11 19:53 | PD.CONS ---
History of Present Illness Service Neurosurgery Consult Requested By Emergency room physician Reason for Consult Bilateral subdural hemorrhages Primary Care Physician Frederick Currie MD Diagnoses: History of Present Illness 77-year-old female who presents in the emergency room with complaints of headaches and nausea along with decreased mentation and lethargy and inactivity. Patient relates that [place] weeks ago and slipped and fell back although did not strike her head but since then she has had headaches which have worsened over the past week. relates that she has been less interactive over the past [address] scan of the head on presentation to the ER reveals a bilateral subdural hemorrhage involving the frontoparietal aspect in the right side there is an acute on chronic component and on the left side is mostly chronic component about 10 mm in thickness without any midline shift. She has a supratherapeutic INR and is on chronic Coumadin therapy for atrial fibrillation. She and her relate that there are vegetarian's and her supervisor incising Dr. Quiroz tried to switch her to Eliquis but she had side effects from that and therefore was switch back to the Coumadin. Review of Systems Constitutional: COMPLAINS OF: Fatigue, DENIES: Diaphoretic episodes, Fever, Weight gain, Weight loss, Chills, Dizziness, Change in appetite, Night Sweats Endocrine: DENIES: Abnorml menstrual pattern, Heat/cold intolerance, Polydipsia , Polyuria, Polyphagia Eyes: DENIES: Blurred vision, Diplopia, Eye inflammation, Eye pain, Vision loss , Photosensitivity, Double Vision Ears, nose, mouth, throat: DENIES: Tinnitus, Hearing loss, Vertigo, Nasal discharge, Oral lesions, Throat pain, Hoarseness, Ear Pain, Running Nose, Epistaxis, Sinus Pain, Toothache, Odynophagia Respiratory: DENIES: Apneas, Cough, Snoring, Wheezing, Hemoptysis, Sputum production, Shortness of breath Cardiovascular: DENIES: Chest pain, Palpitations, Syncope, Dyspnea on Exertion , PND, Lower Extremity Edema, Orthopnea, Claudication Gastrointestinal: COMPLAINS OF: Nausea, DENIES: Abdominal pain, Black stools, Bloody stools, Constipation, Diarrhea, Vomiting, Difficulty Swallowing, Anorexia Genitourinary: COMPLAINS OF: Urinary frequency, Urinary incontinence, Urgency, DENIES: Abnormal vaginal bleeding, Dysmenorrhea, Dyspareunia, Sexual dysfunction , Hematuria, Dysuria, Nocturia, Vaginal discharge Musculoskeletal: DENIES: Joint pain, Muscle aches, Stiffness, Joint Swelling, Back pain, Neck pain Integumentary: DENIES: Abnormal pigmentation, Pruritus, Rash, Nail changes, Breast masses, Breast skin changes, Nipple discharge Hematologic/lymphatic: COMPLAINS OF: Bruising, DENIES: Lymphadenopathy Immunologic/allergic: DENIES: Eczema, Urticaria Neurologic: COMPLAINS OF: Headache, Tremor, DENIES: Abnormal gait, Localized weakness, Paresthesias, Seizures, Speech Problems, Poor Balance Psychiatric: DENIES: Anxiety, Confusion, Mood changes, Depression, Hallucinations, Agitation, Suicidal Ideation, Homicidal Ideation, Delusions Except as stated in HPI: all other systems reviewed are Neg Past Family Social History Allergies: Coded Allergies: apixaban (Verified Allergy, Severe, 11/20/17) chocolate flavor (Unverified Allergy, Severe, SOB, 06/02/17) mold (Unverified Allergy, Severe, SHORTNESS OF BREATH, 06/02/17) mustard (Unverified Allergy, Severe, SOB, 06/02/17) cabbage (Unverified Allergy, Unknown, short of breath, 06/02/17) Past Medical History Congestive heart failure, COPD, hypertension, atrial fibrillation, hyperlipidemia, Parkinson's disease with tremors in the left hand for the past year Past Surgical History Pacemaker, nephrectomy Reported Medications Potassium Chloride ER (Potassium Chloride) 10 Meq Cap 10 Meq PO DAILY Metoprolol Tartrate 25 Mg Tab 25 Mg PO BID Warfarin 5 Mg Tab 5 Mg PO DAILY Ventolin Hfa 18 GM Inh (Albuterol Sulfate) 90 Mcg/Act Aer 2 Puff INH Q4-6H PRN Atorvastatin (Atorvastatin Calcium) 40 Mg Tab 40 Mg PO HS Cartia Xt (Diltiazem ER 24 HR) 120 Mg Caper 120 Mg PO DAILY Furosemide 20 Mg Tab 20 Mg PO DAILY Coq10 (Coenzyme Q10 (Ubidecarenone)) 50 Mg Cap 200 Mg PO DAILY Vitamin B-12 (Cyanocobalamin) 500 Mcg Tab 500 Mcg PO DAILY Vitamin D (Cholecalciferol) 2,000 Unit Cap 1,000 Mg PO DAILY Family History Unremarkable Social History Denies smoking cigarettes and drinks alcohol on occasional basis. She is and her is here with her. Physical Exam Vital Signs Vital Signs Date Time Temp Pulse Resp B/P (MAP) Pulse Ox O2 Delivery O2 Flow Rate FiO2 03/11/18 17:54 76 17 177/75 (109) 99 Room Air 03/11/18 17:18 100 Room Air 03/11/18 16:42 97.8 60 18 155/66 (95) 98 Physical Exam GENERAL: This is a well-nourished, well-developed patient, in no apparent distress. SKIN: No rashes, ecchymoses or lesions. Cool and dry. HEAD: Atraumatic. Normocephalic. No temporal or scalp tenderness. EYES: Pupils equal round and reactive. Extraocular motions intact. No scleral icterus. No injection or drainage. ENT: Nose without bleeding, purulent drainage or septal hematoma. Throat without erythema, tonsillar hypertrophy or exudate. Uvula midline. Airway patent. NECK: Trachea midline. No JVD or lymphadenopathy. Supple, nontender, no meningeal signs. CARDIOVASCULAR: Irregular rate and rhythm without murmurs, gallops, or rubs. RESPIRATORY: Clear to auscultation. Breath sounds equal bilaterally. No wheezes , rales, or rhonchi. GASTROINTESTINAL: Abdomen soft, non-tender, nondistended. No hepato-splenomegaly , or palpable masses. No guarding. MUSCULOSKELETAL: Extremities without clubbing, cyanosis, or edema. No joint tenderness, effusion, or edema noted. No calf tenderness. Negative Homans sign bilaterally. NEUROLOGICAL: She is awake alert and oriented. Pupils are equal reactive, extraocular muscles are intact, face is symmetric and tongue is midline. She moves upper and lower extremities with good strength negative Babinski. Light touch sensation is intact bilaterally. Speech is fluent. Laboratory Laboratory Tests Test 03/11/18 17:30 White Blood Count 8.8 Red Blood Count 4.93 Hemoglobin 14.8 Hematocrit 44.1 Mean Corpuscular Volume 89.6 Mean Corpuscular Hemoglobin 30.0 Mean Corpuscular Hemoglobin Concent 33.4 Red Cell Distribution Width 14.3 Platelet Count 317 Mean Platelet Volume 9.0 Neutrophils (%) (Auto) 86.1 Lymphocytes (%) (Auto) 9.7 Monocytes (%) (Auto) 3.5 Eosinophils (%) (Auto) 0.3 Basophils (%) (Auto) 0.4 Neutrophils # (Auto) 7.6 Lymphocytes # (Auto) 0.9 Monocytes # (Auto) 0.3 Eosinophils # (Auto) 0.0 Basophils # (Auto) 0.0 CBC Comment DIFF FINAL Differential Comment Prothrombin Time 72.1 Prothromb Time International Ratio 7.2 Blood Urea Nitrogen 12 Creatinine 1.08 Random Glucose 123 Total Protein 8.7 Albumin 3.5 Calcium Level 9.3 Alkaline Phosphatase 134 Aspartate Amino Transf (AST/SGOT) 23 Alanine Aminotransferase (ALT/SGPT) 27 Total Bilirubin 0.9 Sodium Level 135 Potassium Level 3.1 Chloride Level 96 Carbon Dioxide Level 27.9 Anion Gap 11 Estimat Glomerular Filtration Rate 49 Result Diagram: 03/11/18 1730 03/11/18 1730 Imaging Last Impressions Head CT 03/11/18 0000 Signed Impressions: CONCLUSION: 1. New, mixed density bilateral subdural hematomas with areas of bilateral hig h density more acute hemorrhage. 2. There is high density hemorrhage along the cerebral falx as well. 3. Compression of the anterior horns of the lateral ventricles which are small er in size. There is no midline shift. Assessment and Plan Assessment and Plan 77-year-old lady with bilateral frontoparietal subdural hemorrhages acute and chronic on the right side and chronic on the left side with some mass-effect although no midline shift. She has Coumadin toxicity with supratherapeutic INR. Recommend correction of the INR with FFP and vitamin K and close observation in the surgical intensive care unit with neuro check. Keep head of bed elevated 30 with mechanical DVT prophylaxis and gastrointestinal stress ulcer prophylaxis. At this point we will continue with nonsurgical management unless the subdural hemorrhages increase in size or she becomes more symptomatic. Discussed at length with patient and her . Levy Aponte MD March 11, 2018 19:53
[2018-03-11] MEDS ORDERED: PHYTONADIONE INJ 10 MG in DEXTROSE 5% IN WATER INJ 50 ML IV ONE ×2 (20:00)
[2018-03-11] MEDS: SODIUM CHLOR 0.9% 250 ML INJ 250 ML IV ONE ×2 (20:00→20:31)
[2018-03-11] MEDS ORDERED: KCENTRA IV ONE ×2 (20:00→20:15)
[2018-03-11] MEDS ORDERED: RESP: ALBUTEROL 2.5 MG/IPRATROPIUM 0.5 MG NEB (PRN) INH (20:15)
[2018-03-11] MEDS ORDERED: SODIUM CHLORIDE 0.9% FLUSH 10 ML FLUSH IV FLUSH PRN (20:15)
[2018-03-11] MEDS ORDERED: CHLORHEXIDINE GLUCONATE 2 % 1 PACK (2 CLOTHS) TOP PRN (20:15)
[2018-03-11] MEDS ORDERED: BISACODYL 10 MG SUPP RECTAL PRN (20:15)
[2018-03-11] MEDS ORDERED: NURSING INFORMATION XX SCH (20:15)
[2018-03-11] MEDS ORDERED: LACTULOSE SYRUP 20 GM/30 ML CUP PO PRN (20:15)
[2018-03-11] MEDS ORDERED: SENNOSIDES 8.6 MG TAB PO PRN (20:15)
[2018-03-11] MEDS ORDERED: MAGNESIUM HYDROXIDE SUSP 30 ML CUP PO PRN (20:15)
[2018-03-11] MEDS ORDERED: MORPHINE SULFATE 4 MG/ML INJ IV PUSH PRN (20:15)
[2018-03-11] MEDS: SODIUM CHLORIDE 0.9% FLUSH 10 ML FLUSH IV FLUSH SCH (20:36)
[2018-03-11] MEDS: SODIUM CHLOR 0.9% 1000 ML INJ 1,000 ML IV SCH (20:36)
[2018-03-11 20:57] LABS: BACTERIA, URINE RARE /hpf; BILIRUBIN, URINE NEG (NEG); BLOOD, URINE SMALL (NEG); GLUCOSE,URINE NEG (NEG); KETONE, URINE NEG (NEG); NITRITE,URINE NEG (NEG); SQUAMOUS EPITHELIAL CELL URINE 1 /hpf (0-5); TRANSITIONAL EPI CELLS, URINE 1 /hpf; URINE COLOR LIGHT-YELLOW (YELLW/STRAW); URINE LEUKOCYTE ESTERASE SMALL (NEG)
[2018-03-11] MEDS: METOPROLOL TARTRATE 25 MG TAB PO SCH (21:00)
[2018-03-11] MEDS ORDERED: ONDANSETRON ODT 4 MG TAB PO PRN (21:00)
[2018-03-11] MEDS: DOCUSATE SODIUM 50 MG/SENNA 8.6 MG TAB PO SCH (21:00)
[2018-03-11] MEDS: ATORVASTATIN 40 MG TAB PO SCH (21:00)
[2018-03-11 21:11] VITALS: O2SAT 100
[2018-03-11] MEDS: RESP: ALBUTEROL 2.5 MG/IPRATROPIUM 0.5 MG NEB (SCH) INH (21:11)
[2018-03-11 22:00] VITALS: BP 136/59; PULSE 60; PULSE 62; RESP 15; TEMP 98.2; O2SAT 99
--- NOTE | 2018-03-11 22:28 | HHI.HP ---
HPI Service Critical Care Medicine Primary Care Physician Frederick Currie MD Admission Diagnosis subdural hematoma Diagnosis: Travel History International Travel<30 Days: No Contact w/Intl Traveler <30 Da: No Traveled to Known Affected Are: No History of Present Illness 77-year-old female presents with complaints of generalized weakness lethargy and headache. She denies any difficulty walking or talking. She denies any vomiting. She is on Coumadin for atrial fibrillation. Patient does have a history of migraines but she has not had a migraine in 20 years and this is unusual for her. The CT of head obtained in the emergency department shows bilateral subdural hematomas, the hemorrhagic along the cerebral falx and compression of the anterior horns of the lateral ventricles which are small in size. Her INR was found to be 7. She has received K [facility], vitamin K, and FFP 's in the emergency department. The case was discussed by ED attending with neurosurgeon on-call who recommended conservative medical management. Review of Systems Constitutional: DENIES: Diaphoretic episodes, Fatigue, Fever, Weight gain, Weight loss, Chills, Dizziness, Change in appetite, Night Sweats Endocrine: DENIES: Abnorml menstrual pattern, Heat/cold intolerance, Polydipsia , Polyuria, Polyphagia Eyes: DENIES: Blurred vision, Diplopia, Eye inflammation, Eye pain, Vision loss , Photosensitivity, Double Vision Ears, nose, mouth, throat: DENIES: Tinnitus, Hearing loss, Vertigo, Nasal discharge, Oral lesions, Throat pain, Hoarseness, Ear Pain, Running Nose, Epistaxis, Sinus Pain, Toothache, Odynophagia Respiratory: DENIES: Apneas, Cough, Snoring, Wheezing, Hemoptysis, Sputum production, Shortness of breath Cardiovascular: DENIES: Chest pain, Palpitations, Syncope, Dyspnea on Exertion , PND, Lower Extremity Edema, Orthopnea, Claudication Gastrointestinal: DENIES: Abdominal pain, Black stools, Bloody stools, Constipation, Diarrhea, Nausea, Vomiting, Difficulty Swallowing, Anorexia Genitourinary: DENIES: Abnormal vaginal bleeding, Dysmenorrhea, Dyspareunia, Sexual dysfunction, Urinary frequency, Urinary incontinence, Urgency, Hematuria , Dysuria, Nocturia, Vaginal discharge Musculoskeletal: DENIES: Joint pain, Muscle aches, Stiffness, Joint Swelling, Back pain, Neck pain Integumentary: DENIES: Abnormal pigmentation, Pruritus, Rash, Nail changes, Breast masses, Breast skin changes, Nipple discharge Hematologic/lymphatic: DENIES: Bruising, Lymphadenopathy Immunologic/allergic: DENIES: Eczema, Urticaria Neurologic: COMPLAINS OF: Abnormal gait, Headache, Poor Balance, DENIES: Localized weakness, Paresthesias, Seizures, Speech Problems, Tremor Psychiatric: DENIES: Anxiety, Confusion, Mood changes, Depression, Hallucinations, Agitation, Suicidal Ideation, Homicidal Ideation, Delusions Past Family Social History Allergies: Coded Allergies: apixaban (Verified Allergy, Severe, 11/20/17) chocolate flavor (Unverified Allergy, Severe, SOB, 06/02/17) mold (Unverified Allergy, Severe, SHORTNESS OF BREATH, 06/02/17) mustard (Unverified Allergy, Severe, SOB, 06/02/17) cabbage (Unverified Allergy, Unknown, short of breath, 06/02/17) Past Medical History Aortic atherosclerosis Atypical mycobacterial infection of the lung Bronchiectasis Lumbar degenerative disc disease Extrapyramidal disorder Hypertension Hyperlipidemia Paroxysmal atrial fibrillation PSVT Past Surgical History She's had at least 2 bronchoscopies with the last one being in 2015 no malignant cells noted Left nephrectomy for benign tumor Pacemaker placement in 2009 Tonsillectomy and adenoidectomy as a child Reported Medications Reported Meds & Active Scripts Active Potassium Chloride ER (Potassium Chloride) 10 Meq Cap 10 Meq PO DAILY Metoprolol Tartrate 25 Mg Tab 25 Mg PO BID Reported Warfarin 5 Mg Tab 5 Mg PO DAILY Ventolin Hfa 18 GM Inh (Albuterol Sulfate) 90 Mcg/Act Aer 2 Puff INH Q4-6H PRN Atorvastatin (Atorvastatin Calcium) 40 Mg Tab 40 Mg PO HS Cartia Xt (Diltiazem ER 24 HR) 120 Mg Caper 120 Mg PO DAILY Furosemide 20 Mg Tab 20 Mg PO DAILY Coq10 (Coenzyme Q10 (Ubidecarenone)) 50 Mg Cap 200 Mg PO DAILY Vitamin B-12 (Cyanocobalamin) 500 Mcg Tab 500 Mcg PO DAILY Vitamin D (Cholecalciferol) 2,000 Unit Cap 1,000 Mg PO DAILY Active Ordered Medications Current Medications Medications (Trade) Dose Ordered Sig/Jean Marie Route PRN Reason Start Time Stop Time Status Last Admin Dose Admin Sodium Chloride 250 ml @ 15 mls/hr ONCE ONCE IV 03/11/18 19:00 03/12/18 11:39 Atorvastatin Calcium (Lipitor) 40 mg HS PO 03/11/18 21:00 Cyanocobalamin (Vitamin B12) 500 mcg DAILY PO 03/12/18 09:00 Diltiazem HCl (Cardizem Cd) 120 mg DAILY PO 03/12/18 09:00 Furosemide (Lasix) 20 mg DAILY PO 03/12/18 09:00 Metoprolol Tartrate (Lopressor) 25 mg BID PO 03/11/18 21:00 Potassium Chloride (KCl) 10 meq DAILY PO 03/12/18 09:00 Cholecalciferol (Vitamin D3) 1,000 units DAILY PO 03/12/18 09:00 Sodium Chloride 1,000 ml @ 84 mls/hr [id number] IV 03/11/18 21:00 03/11/18 20:36 Sodium Chloride (NS Flush) 2 ml UNSCH PRN IV FLUSH FLUSH AFTER USING IV ACCESS 03/11/18 20:15 Sodium Chloride (NS Flush) 2 ml BID IV FLUSH 03/11/18 21:00 03/11/18 20:36 Acetaminophen (Tylenol) 650 mg Q6H PRN PO PAIN 1-5 AND/OR FEVER >101F 03/11/18 20:15 Morphine Sulfate (Morphine Inj) 2 mg Q2H PRN IV PUSH PAIN SCALE 6 TO 10 03/11/18 20:15 Famotidine (Pepcid Inj) 20 mg Q12HR IV PUSH 03/11/18 21:00 03/11/18 22:36 Ondansetron HCl (Zofran Odt) 4 mg Q6H PRN PO NAUSEA OR VOMITING 03/11/18 21:00 Albuterol/ Ipratropium (Duoneb Neb) 1 ampule Q6HR NEB INH 03/11/18 22:00 03/11/18 21:11 Albuterol/ Ipratropium (Duoneb Neb) 1 ampule Q2HR NEB PRN INH WHEEZING 03/11/18 20:15 Miscellaneous Information ([facility] [place] [facility]) 1 [id number] XX 03/11/18 20:15 03/11/18 20:15 Chlorhexidine Gluconate (Chlorhexidine 2% Cloth) 3 pack Taper DAILY@04 TOP 03/12/18 04:00 03/08/19 03:59 Chlorhexidine Gluconate (Chlorhexidine 2% Cloth) 3 pack UNSCH PRN TOP HYGIENIC CARE 03/11/18 20:15 Senna/Docusate Sodium (Sofia-Colace) 1 tab BID PO 03/11/18 21:00 Magnesium Hydroxide (Milk Of Magnesia Liq) 30 ml Q12H PRN PO Mild constipation 03/11/18 20:15 Sennosides (Senokot) 17.2 mg Q12H PRN PO Moderate constipation 03/11/18 20:15 Bisacodyl (Dulcolax Supp) 10 mg DAILY PRN RECTAL SEVERE CONSITIPATION 03/11/18 20:15 Lactulose (Lactulose Liq) 30 ml DAILY PRN PO SEVERE CONSITIPATION 03/11/18 20:15 Family History No family history significant of early coronary artery disease or malignancies Social History Never a smoker, very rare alcohol use, no illicit drug abuse 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 Physical Exam Vital Signs Vital Signs Date Time Temp Pulse Resp B/P (MAP) Pulse Ox O2 Delivery O2 Flow Rate FiO2 03/11/18 21:11 100 03/11/18 17:54 76 17 177/75 (109) 99 Room Air 03/11/18 17:18 100 Room Air 03/11/18 16:42 97.8 60 18 155/66 (95) 98 Physical Exam GENERAL: Well-nourished, well-developed patient. SKIN: Warm and dry. HEAD: Normocephalic. EYES: No scleral icterus. No injection or drainage. NECK: Supple, trachea midline. No JVD or lymphadenopathy. CARDIOVASCULAR: Regular rate and rhythm without murmurs, gallops, or rubs. RESPIRATORY: Breath sounds equal bilaterally. No accessory muscle use. GASTROINTESTINAL: Abdomen soft, non-tender, nondistended. MUSCULOSKELETAL: No cyanosis, or edema. BACK: Nontender without obvious deformity. NEURO EXAM: GCS: 15 Mental Status: The patient is alert and oriented to person, place, and time with normal speech. Cranial Nerves: Visual acuity intact bilaterally. Visual kwan normal in all quadrants. Pupils are round, reactive to light. Extraocular movements are intact without ptosis. Hearing is normal bilaterally. Voice is normal. Tongue protrudes midline and moves symmetrically. Reflexes: Biceps, patellar, and Achilles are 2/4 bilaterally. No clonus. Sensation: Sensation is intact bilaterally to pain and light touch. Two-point discrimination is intact. Motor: Good muscle tone. Strength is 5/5 bilaterally. Cerebellar: [id number] and [id number] test normal bilaterally. Laboratory Laboratory Tests Test 03/11/18 17:30 03/11/18 20:05 03/11/18 20:20 White Blood Count 8.8 Red Blood Count 4.93 Hemoglobin 14.8 Hematocrit 44.1 Mean Corpuscular Volume 89.6 Mean Corpuscular Hemoglobin 30.0 Mean Corpuscular Hemoglobin Concent 33.4 Red Cell Distribution Width 14.3 Platelet Count 317 Mean Platelet Volume 9.0 Neutrophils (%) (Auto) 86.1 Lymphocytes (%) (Auto) 9.7 Monocytes (%) (Auto) 3.5 Eosinophils (%) (Auto) 0.3 Basophils (%) (Auto) 0.4 Neutrophils # (Auto) 7.6 Lymphocytes # (Auto) 0.9 Monocytes # (Auto) 0.3 Eosinophils # (Auto) 0.0 Basophils # (Auto) 0.0 CBC Comment DIFF FINAL Differential Comment Prothrombin Time 72.1 Prothromb Time International Ratio 7.2 Blood Urea Nitrogen 12 Creatinine 1.08 Random Glucose 123 Total Protein 8.7 Albumin 3.5 Calcium Level 9.3 Alkaline Phosphatase 134 Aspartate Amino Transf (AST/SGOT) 23 Alanine Aminotransferase (ALT/SGPT) 27 Total Bilirubin 0.9 Sodium Level 135 Potassium Level 3.1 Chloride Level 96 Carbon Dioxide Level 27.9 Anion Gap 11 Estimat Glomerular Filtration Rate 49 Urine Color LIGHT-YELLOW Urine Turbidity CLEAR Urine pH 7.0 Urine Specific Rosanky 1.003 Urine Protein NEG Urine Glucose (UA) NEG Urine Ketones NEG Urine Occult Blood SMALL Urine Nitrite NEG Urine Bilirubin NEG Urine Urobilinogen LESS THAN 2.0 Urine Leukocyte Esterase SMALL Urine RBC LESS THAN 1 Urine WBC 7 Urine Squamous Epithelial Cells 1 Urine Transitional Epithelial Cells 1 Urine Bacteria RARE Microscopic Urinalysis Comment CULT NOT INDICATED Activated Partial Thromboplast Time 58.0 Result Diagram: 03/11/18 1730 03/11/18 173 Imaging 1. New, mixed density bilateral subdural hematomas with areas of bilateral high density more acute hemorrhage. 2. There is high density hemorrhage along the cerebral falx as well. 3. Compression of the anterior horns of the lateral ventricles which are smaller in size. There is no midline shift. Septic Shock Reassessment Septic shock perfusion: reassessment completed Caprini VTE Risk Assessment Caprini VTE Risk Assessment: Mod/High Risk (score >= 2) VTE Pharm Contraindication: Intracranial lesions Caprini Risk Assessment Model Point Value = 1 Point Value = 2 Point Value = 3 Point Value = 5 Age 41-60 Minor surgery BMI > 25 kg/m2 Swollen legs Varicose veins or History of unexplained or recurrent spontaneous Oral contraceptives or hormone replacement Sepsis (< 1 month) Serious lung disease, including pneumonia (< 1 month) Abnormal pulmonary function Acute myocardial infarction Congestive heart failure (< 1 month) History of inflammatory bowel disease Medical patient at bed rest Age 61-74 Arthroscopic surgery Major open surgery (> 45 min) Laparoscopic surgery (> 45 min) Malignancy Confined to bed (> 72 hours) Immobilizing plaster cast Central venous access Age >= 75 History of VTE Family history of VTE Factor V Leiden Prothrombin [id number] Lupus anticoagulant Anticardiolipin antibodies Elevated serum homocysteine Heparin-induced thrombocytopenia Other congenital or acquired thrombophilia Stroke (< 1 month) Elective arthroplasty Hip, pelvis, or leg fracture Acute spinal cord injury (< 1 month) Prophylaxis Regimen Total Risk Factor Score Risk Level Prophylaxis Regimen 0-1 Low Early ambulation 2 Moderate Order ONE of the following: *Sequential Compression Device (SCD) *Heparin 5000 units SQ BID 3-4 Higher Order ONE of the following medications: *Heparin 5000 units SQ TID *Enoxaparin/Lovenox 40 mg SQ daily (WT < 150 kg, CrCl > 30 mL/min) *Enoxaparin/Lovenox 30 mg SQ daily (WT < 150 kg, CrCl > 10-29 mL/min) *Enoxaparin/Lovenox 30 mg SQ BID (WT < 150 kg, CrCl > 30 mL/min) AND/OR *Sequential Compression Device (SCD) 5 or more Highest Order ONE of the following medications: *Heparin 5000 units SQ TID (Preferred with Epidurals) *Enoxaparin/Lovenox 40 mg SQ daily (WT < 150 kg, CrCl > 30 mL/min) *Enoxaparin/Lovenox 30 mg SQ daily (WT < 150 kg, CrCl > 10-29 mL/min) *Enoxaparin/Lovenox 30 mg SQ BID (WT < 150 kg, CrCl > 30 mL/min) AND *Sequential Compression Device (SCD) Assessment and Plan Assessment and Plan Subdural hematoma -Conservative management per neurosurgery Dr. Aponte -Coagulopathy reversal -Received [facility], FFP's, and vitamin K in the emergency department -Neuro checks to unit protocol -Repeat CT head per neurosurgery -PT and OT eval and treat as tolerated Dyslipidemia -Atorvastatin Coronary artery disease -Diltiazem -Metoprolol -Hold Coumadin anticoagulation due to subdural hematoma Hypertension -Metoprolol -Lasix -Goal SBP less than 140 Bronchiectasis -DuoNeb scheduled and as needed DVT GI prophylaxis -Edi's and SCDs -No pharmacological DVT prophylaxis due to acute intracranial bleed -Pepcid Critical Care: The total critical care time was 35 minutes. Time to perform other separately billable procedures was not included in the critical care time. Arnie Le MD March 11, 2018 10:28 pm
[2018-03-11] MEDS: FAMOTIDINE 20 MG/2 ML VIAL IV PUSH SCH (22:36)
[2018-03-11 22:51] LABS: INTERNATIONAL NORMALIZED RATIO 1.1 RATIO; PROTHROMBIN TIME - PATIENT 10.7 SEC (9.8-11.6)
[2018-03-11 23:00] VITALS: BP 136/63; PULSE 60; RESP 20; O2SAT 96
[2018-03-12] VITALS (24 sets, daily range): BP systolic 95–171; BP diastolic 46–81; PULSE 59–68; RESP 15–23; TEMP 97.9–98.3; O2SAT 96–100
[2018-03-12] MEDS: CHLORHEXIDINE GLUCONATE 2 % 1 PACK (2 CLOTHS) TOP SCH (00:25)
[2018-03-12] MEDS: RESP: ALBUTEROL 2.5 MG/IPRATROPIUM 0.5 MG NEB (SCH) INH ×4 (03:44→19:59)
[2018-03-12 07:08] LABS: AUTOMATED NEUTROPHIL # 4.9 TH/MM3 (1.8-7.7); BASOPHIL % 0.7 % (0.0-2.0); EOSINOPHIL # 0.1 TH/MM3 (0-0.4); EOSINOPHIL % 1.2 % (0.0-4.0); HEMOGLOBIN 12.4 GM/DL (11.6-15.3); LYMPH % 17.5 % (9.0-44.0); LYMPHOCYTE # 1.2 TH/MM3 (1.0-4.8); MEAN CELL VOLUME 88.9 FL (80.0-100.0); MEAN CORPUSCULAR HEMOGLOBIN 29.8 PG (27.0-34.0); MEAN CORPUSCULAR HGB CONC 33.5 % (32.0-36.0); MEAN PLATELET VOLUME 8.6 FL (7.0-11.0); MONO % 8.3 % (0.0-8.0); MONOCYTE # 0.6 TH/MM3 (0-0.9); NEUT % 72.3 % (16.0-70.0); PLATELET COUNT 233 TH/MM3 (150-450); RED BLOOD COUNT 4.17 MIL/MM3 (4.00-5.30); RED CELL DISTRIBUTION WIDTH 14.4 % (11.6-17.2); WHITE BLOOD COUNT 6.7 TH/MM3 (4.0-11.0)
[2018-03-12 07:21] LABS: PROTHROMBIN TIME - PATIENT 10.3 SEC (9.8-11.6)
--- NOTE | 2018-03-12 07:50 | HHI.CCPN ---
Subjective Remarks/Hospital Course 77-year-old female presents with complaints of generalized weakness lethargy and headache. She denies any difficulty walking or talking. She denies any vomiting. She is on Coumadin for atrial fibrillation. Patient does have a history of migraines but she has not had a migraine in 20 years and this is unusual for her. The CT of head obtained in the emergency department shows bilateral subdural hematomas, the hemorrhagic along the cerebral falx and compression of the anterior horns of the lateral ventricles which are small in size. Her INR was found to be 7. She has received K [facility]ra, vitamin K, and FFP 's in the emergency department. The case was discussed by ED attending with neurosurgeon on-call who recommended conservative medical management. 03/12: INR corrected after K Centra and fresh frozen plasma. Moves 4 limbs and follows commands. Awoke easily and rapidly this morning from sound sleep, well oriented. Objective Vital Signs Date Time Temp Pulse Resp B/P (MAP) Pulse Ox O2 Delivery O2 Flow Rate FiO2 03/12/18 07:00 98.0 68 20 157/68 (97) 100 03/12/18 07:00 Room Air Intake and Output 03/12/18 03/12/18 03/13/18 08:00 16:00 00:00 Intake Total 0 ml Output Total 300 ml Balance -300 ml Result Diagram: 03/12/18 0638 03/11/18 1730 Imaging 1. New, mixed density bilateral subdural hematomas with areas of bilateral high density more acute hemorrhage. 2. There is high density hemorrhage along the cerebral falx as well. 3. Compression of the anterior horns of the lateral ventricles which are smaller in size. There is no midline shift. Objective Remarks GENERAL: Well-nourished, well-developed patient. SKIN: Warm and dry. HEAD: Normocephalic. EYES: No scleral icterus. No injection or drainage. NECK: Supple, trachea midline. No JVD or lymphadenopathy. CARDIOVASCULAR: Regular rate and rhythm without murmurs, gallops, or rubs. RESPIRATORY: Breath sounds equal bilaterally. No accessory muscle use. GASTROINTESTINAL: Abdomen soft, non-tender, nondistended. MUSCULOSKELETAL: No cyanosis, or edema. BACK: Nontender without obvious deformity. NEURO EXAM: GCS: 15 Mental Status: The patient is alert and oriented to person, place, and time with normal speech. Cranial Nerves: Visual acuity intact bilaterally. Pupils are round, reactive to light. Extraocular movements are intact without ptosis. Voice is normal. Tongue protrudes midline and moves symmetrically. Reflexes: Patellar and Achilles DTRs are 2/4 bilaterally. No clonus. Sensation: Sensation is intact bilaterally to pain and light touch. Two-point discrimination is intact. Motor: Good muscle tone. Strength is 5/5 bilaterally. Cerebellar: [id number]-[id number] and [id number] test normal bilaterally. A/P Assessment and Plan Subdural hematoma -Conservative management per neurosurgery Dr. Aponte -Coagulopathy reversal -Received K [facility], FFP's, and vitamin K in the emergency department -Neuro checks to unit protocol -Repeat CT head per neurosurgery -PT and OT eval and treat as tolerated -Follow INR for rebound Dyslipidemia -Atorvastatin Coronary artery disease -Diltiazem -Metoprolol -Hold Coumadin anticoagulation due to subdural hematoma Hypertension -Metoprolol -Lasix -Goal SBP less than 140 Bronchiectasis -DuoNeb scheduled and as needed DVT GI prophylaxis -Edi's and SCDs -No pharmacological DVT prophylaxis due to acute intracranial bleed -Pepcid Overall impression: The woman's neurological exam is grossly normal and there are no there is no evidence that she has further at her cerebral compression from the small bilateral subdural hematoma. She protects her airway well and verbalizes fluently. Pritesh Dempsey MD March 12, 2018 07:49
[2018-03-12 07:56] LABS: ALBUMIN 2.8 GM/DL (3.4-5.0); ALKALINE PHOSPHATASE 101 U/L (45-117); ALT (GPT) 20 U/L (10-53); AST (GOT) 19 U/L (15-37); BICARBONATE 29.8 MEQ/L (21.0-32.0); BLOOD UREA NITROGEN 11 MG/DL (7-18); CALCIUM 8.7 MG/DL (8.5-10.1); CHLORIDE 104 MEQ/L (98-107); CREATININE 0.88 MG/DL (0.50-1.00); GLOMERULAR FILTRATION RATE 63 ML/MIN (>89); GLUCOSE,RANDOM 83 MG/DL (74-106); MAGNESIUM 2.2 MG/DL (1.5-2.5); SODIUM (NA) 143 MEQ/L (136-145); TOTAL BILIRUBIN ADULT 1.6 MG/DL (0.2-1.0); TOTAL PROTEIN 6.8 GM/DL (6.4-8.2)
[2018-03-12] MEDS: DILTIAZEM-CD 120 MG CAP ER PO SCH (08:07)
[2018-03-12] MEDS: CHOLECALCIFEROL (VIT D3) 1000 UNIT TAB PO SCH (08:07)
[2018-03-12] MEDS: METOPROLOL TARTRATE 25 MG TAB PO SCH ×2 (08:07→20:22)
[2018-03-12] MEDS: DOCUSATE SODIUM 50 MG/SENNA 8.6 MG TAB PO SCH ×2 (08:07→20:22)
[2018-03-12] MEDS: FUROSEMIDE 20 MG TAB PO SCH (08:07)
[2018-03-12] MEDS: FAMOTIDINE 20 MG/2 ML VIAL IV PUSH SCH ×2 (08:07→20:22)
[2018-03-12] MEDS: CYANOCOBALAMIN 1,000 MCG TAB PO SCH (08:07)
[2018-03-12] MEDS: SODIUM CHLORIDE 0.9% FLUSH 10 ML FLUSH IV FLUSH SCH ×2 (08:08→20:23)
[2018-03-12] MEDS: POTASSIUM CHLORIDE 10 MEQ CAP PO SCH (08:11)
[2018-03-12] MEDS: SODIUM CHLOR 0.9% 1000 ML INJ 1,000 ML IV SCH ×2 (08:55→20:23)
--- NOTE | 2018-03-12 08:56 | HHI.NSPN ---
(Arjun Garcia) History Chief Complaint: SDH. (Arjun Garcia) Interval History 77-year-old female who presents in the emergency room with complaints of headaches and nausea along with decreased mentation and lethargy and inactivity. Patient relates that [place] weeks [place] and slipped and fell back although did not strike her head but since then she has had headaches which have worsened over the past week. relates that she has been less interactive over the past [address] scan of the head on presentation to the ER reveals a bilateral subdural hemorrhage involving the frontoparietal aspect in the right side there is an acute on chronic component and on the left side is mostly chronic component about 10 mm in thickness without any midline shift. She has a supratherapeutic INR and is on chronic Coumadin therapy for atrial fibrillation. 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 Quiroz tried to switch her to Eliquis but she had side effects from that and therefore was switch back to the Coumadin. 03/12/18: Pt awake and alert. She states the headache and nausea that brought her to the hospital has resolved. She Denies any muscle weakness, paresthesias , or visual changes. (Arjun Garcia) Review of Systems General: Negative for: fever, chills, insomnia Respiratory: Negative for: shortness of breath, cough, sputum Cardiovascular: Negative for: chest pain Gastrointestinal: Negative for: nausea, vomitting, diarrhea, constipation ( Arjun Garcia) Exam Results Vital Signs Date Time Temp Pulse Resp B/P (MAP) Pulse Ox O2 Delivery O2 Flow Rate FiO2 03/12/18 08:35 98 Nasal Cannula 2.00 03/12/18 07:00 98.0 68 20 157/68 (97) Intake and Output 03/12/18 03/12/18 03/13/18 08:00 16:00 00:00 Intake Total 0 ml Output Total 300 ml Balance -300 ml (Arjun Garcia) Physical Examination General: Pt awake and alert. Sitting up in bed in NAD. Eyes: Pupils equal. Sclera anicteric. Resp: CTA bilaterally. Heart: Paced. No murmurs Abd: Soft positive bs Skin: No cyanosis or erythema. Muscle: Moves all 4 extremities with good symmetric strength. Neuro: Pt awake and alert. Pupils equal 3mm bilaterally and reactive. Follows commands well. Speech clear and appropriate. She has a resting left pill roll tremor and states she has Parkinson's disease. She follows commands well. (Arjun Garcia) Lab, Micro, Other Results Last Impressions Head CT 03/11/18 0000 Signed Impressions: CONCLUSION: 1. New, mixed density bilateral subdural hematomas with areas of bilateral hig h density more acute hemorrhage. 2. There is high density hemorrhage along the cerebral falx as well. 3. Compression of the anterior horns of the lateral ventricles which are small er in size. There is no midline shift. Laboratory Tests Test 03/11/18 17:30 03/11/18 20:05 03/11/18 20:20 03/11/18 22:04 White Blood Count 8.8 TH/MM3 Red Blood Count 4.93 MIL/MM3 Hemoglobin 14.8 GM/DL Hematocrit 44.1 % Mean Corpuscular Volume 89.6 FL Mean Corpuscular Hemoglobin 30.0 PG Mean Corpuscular Hemoglobin Concent 33.4 % Red Cell Distribution Width 14.3 % Platelet Count 317 TH/MM3 Mean Platelet Volume 9.0 FL Neutrophils (%) (Auto) 86.1 % Lymphocytes (%) (Auto) 9.7 % Monocytes (%) (Auto) 3.5 % Eosinophils (%) (Auto) 0.3 % Basophils (%) (Auto) 0.4 % Neutrophils # (Auto) 7.6 TH/MM3 Lymphocytes # (Auto) 0.9 TH/MM3 Monocytes # (Auto) 0.3 TH/MM3 Eosinophils # (Auto) 0.0 TH/MM3 Basophils # (Auto) 0.0 TH/MM3 CBC Comment DIFF FINAL Differential Comment Prothrombin Time 72.1 SEC 10.7 SEC Prothromb Time International Ratio 7.2 RATIO 1.1 RATIO Blood Urea Nitrogen 12 MG/DL Creatinine 1.08 MG/DL Random Glucose 123 MG/DL Total Protein 8.7 GM/DL Albumin 3.5 GM/DL Calcium Level 9.3 MG/DL Alkaline Phosphatase 134 U/L Aspartate Amino Transf (AST/SGOT) 23 U/L Alanine Aminotransferase (ALT/SGPT) 27 U/L Total Bilirubin 0.9 MG/DL Sodium Level 135 MEQ/L Potassium Level 3.1 MEQ/L Chloride Level 96 MEQ/L Carbon Dioxide Level 27.9 MEQ/L Anion Gap 11 MEQ/L Estimat Glomerular Filtration Rate 49 ML/MIN Urine Color LIGHT-YELLOW Urine Turbidity CLEAR Urine pH 7.0 Urine Specific [place] 1.003 Urine Protein NEG mg/dL Urine Glucose (UA) NEG mg/dL Urine Ketones NEG mg/dL Urine Occult Blood SMALL Urine Nitrite NEG Urine Bilirubin NEG Urine Urobilinogen LESS THAN 2.0 MG/DL Urine Leukocyte Esterase SMALL Urine RBC LESS THAN 1 /hpf Urine WBC 7 /hpf Urine Squamous Epithelial Cells 1 /hpf Urine Transitional Epithelial Cells 1 /hpf Urine Bacteria RARE /hpf Microscopic Urinalysis Comment CULT NOT INDICATED Activated Partial Thromboplast Time 58.0 SEC Test 03/11/18 22:20 03/12/18 06:38 Nasal Screen MRSA (PCR) MRSA NOT DETECTED White Blood Count 6.7 TH/MM3 Red Blood Count 4.17 MIL/MM3 Hemoglobin 12.4 GM/DL Hematocrit 37.0 % Mean Corpuscular Volume 88.9 FL Mean Corpuscular Hemoglobin 29.8 PG Mean Corpuscular Hemoglobin Concent 33.5 % Red Cell Distribution Width 14.4 % Platelet Count 233 TH/MM3 Mean Platelet Volume 8.6 FL Neutrophils (%) (Auto) 72.3 % Lymphocytes (%) (Auto) 17.5 % Monocytes (%) (Auto) 8.3 % Eosinophils (%) (Auto) 1.2 % Basophils (%) (Auto) 0.7 % Neutrophils # (Auto) 4.9 TH/MM3 Lymphocytes # (Auto) 1.2 TH/MM3 Monocytes # (Auto) 0.6 TH/MM3 Eosinophils # (Auto) 0.1 TH/MM3 Basophils # (Auto) 0.0 TH/MM3 CBC Comment DIFF FINAL Differential Comment Prothrombin Time 10.3 SEC Prothromb Time International Ratio 1.0 RATIO Activated Partial Thromboplast Time 25.0 SEC Blood Urea Nitrogen 11 MG/DL Creatinine 0.88 MG/DL Random Glucose 83 MG/DL Total Protein 6.8 GM/DL Albumin 2.8 GM/DL Calcium Level 8.7 MG/DL Phosphorus Level 3.0 MG/DL Magnesium Level 2.2 MG/DL Alkaline Phosphatase 101 U/L Aspartate Amino Transf (AST/SGOT) 19 U/L Alanine Aminotransferase (ALT/SGPT) 20 U/L Total Bilirubin 1.6 MG/DL Sodium Level 143 MEQ/L Potassium Level 3.3 MEQ/L Chloride Level 104 MEQ/L Carbon Dioxide Level 29.8 MEQ/L Anion Gap 9 MEQ/L Estimat Glomerular Filtration Rate 63 ML/MIN (Arjun Garcia) Medical Decision Making Impression and Plan A: 77-year-old lady with bilateral frontoparietal subdural hemorrhages acute and chronic on the right side and chronic on the left side with some mass- effect although no midline shift. She has Coumadin toxicity with supratherapeutic INR. Corrected now. P: Continue with Neuro checks. Follow up CT head today. Increase activity with assistance. (Arjun Garcia) Attending Statement The exam, history, and the medical decision-making described in the above note were completed with the assistance of the mid-level provider. I reviewed and agree with the findings presented. I attest that I had a [id number] encounter with the patient on the same day, and personally performed and documented my assessment and findings in the medical record. Follow-up CT scan of the head is stable bilateral subdural hemorrhages. She relates that her headache is improved and her mentation is also more clear which that her corroborates. PT/INR has been corrected. Continue with conservative measures and increase activity status and diet as tolerated. She will need to hold off on anticoagulation for the next 10-14 days and will obtain a follow-up CT scan of the head subsequently to ensure continued resolution and no progression of these of subdural hemorrhages. Discussed with patient and . (Levy Aponte MD) Arjun Garcia March 12, 2018 08:56 Levy Aponte MD March 12, 2018 14:51
[2018-03-12] MEDS ORDERED: NON-FORMULARY DRUG (Coenzyme Q10 (Ubidecarenone) (Coq10) 200 MG) PO SCH (09:00)
[2018-03-12] MEDS ORDERED: POTASSIUM PHOSPHATE INJ 30 MMOL in SODIUM CHLOR 0.9% 250 ML INJ 250 ML IV PRN (10:00)
[2018-03-12] MEDS ORDERED: MAGNESIUM OXIDE 400 MG TAB PO PRN (10:00)
[2018-03-12] MEDS ORDERED: POTASSIUM PHOSPHATE MONOBASIC 500 MG TAB PO PRN (10:00)
[2018-03-12] MEDS ORDERED: POTASSIUM CHLOR 20 MEQ PREMIX 100 ML IV PRN ×2 (10:00)
[2018-03-12] MEDS ORDERED: MAGNESIUM SULFATE INJ 4 GM in SODIUM CHLORIDE 0.9% INJ 92 ML IV PRN (10:00)
[2018-03-12] MEDS ORDERED: POTASSIUM CHLORIDE 25 MEQ EFFERVESCENT TAB PO PRN (10:00)
[2018-03-12] MEDS ORDERED: SODIUM PHOSPHATE INJ 30 MMOL in SODIUM CHLOR 0.9% 250 ML INJ 240 ML IV PRN (10:00)
[2018-03-12] MEDS ORDERED: POTASSIUM PHOSPHATE MONOBASIC 500 MG TAB PO/TUBE PRN (10:00)
[2018-03-12] MEDS ORDERED: POTASSIUM CHLOR 40 MEQ PREMIX 100 ML IV PRN ×2 (10:00)
[2018-03-12] MEDS ORDERED: MAGNESIUM SULFATE INJ 2 GM in SODIUM CHLORIDE 0.9% INJ 96 ML IV PRN (10:00)
--- NOTE | 2018-03-12 10:28 | RADRPT ---
EXAM DATE: 03/12/2018 10:22 AM EDT AGE/SEX: 77 years / Female INDICATIONS: F/U subdural hematoma. CLINICAL DATA: This is the patient's subsequent encounter. Patient reports that signs and symptoms h ave been present for 2 days and indicates a pain score of 0/10. MEDICAL/SURGICAL HISTORY: Hypertension. Parkinson's Pacemaker. Nephrectomy, left. RADIATION DOSE: 56.35 CTDI (mGy) [place] [facility] [place]. . TECHNIQUE: CT of the head without contrast. Using automated exposure control and adjustment of the mA and/or kV according to patient size, radiation dose was kept as low as reasonably achievable to ob tain optimal diagnostic quality images. FINDINGS: Parafalcine blood and bilateral mixed density subdural hematomas are grossly stable. There may be a s mall cortical contusion in the high convexity right frontal region which is also stable. There is no new hemorrhage identified. CONCLUSION: Stable intracranial hemorrhage Electronically signed by: Valentín Rubin MD 03/12/2018 10:26 AM EDT
[2018-03-12 13:50] LABS: PROTHROMBIN TIME - PATIENT 10.3 SEC (9.8-11.6)
[2018-03-12] MEDS ORDERED: AMIO200T PO (15:44)
[2018-03-12] MEDS: AMIODARONE 200 MG TAB PO SCH (17:17)
[2018-03-12 17:37] LABS: PROTHROMBIN TIME - PATIENT 10.5 SEC (9.8-11.6)
[2018-03-12] MEDS: ATORVASTATIN 40 MG TAB PO SCH (20:22)
[2018-03-13] VITALS (16 sets, daily range): BP systolic 109–149; BP diastolic 56–98; PULSE 60–114; RESP 13–24; TEMP 97.3–98.5; O2SAT 97–100
[2018-03-13] MEDS: CHLORHEXIDINE GLUCONATE 2 % 1 PACK (2 CLOTHS) TOP SCH (00:09)
[2018-03-13] MEDS: RESP: ALBUTEROL 2.5 MG/IPRATROPIUM 0.5 MG NEB (SCH) INH ×4 (02:48→22:06)
[2018-03-13 06:40] LABS: PROTHROMBIN TIME - PATIENT 10.3 SEC (9.8-11.6)
[2018-03-13] MEDS: SODIUM CHLOR 0.9% 1000 ML INJ 1,000 ML IV SCH ×2 (08:45→21:49)
[2018-03-13] MEDS: SODIUM CHLORIDE 0.9% FLUSH 10 ML FLUSH IV FLUSH SCH ×2 (09:00→21:21)
[2018-03-13] MEDS: METOPROLOL TARTRATE 25 MG TAB PO SCH ×2 (09:03→21:20)
[2018-03-13] MEDS: DILTIAZEM-CD 120 MG CAP ER PO SCH (09:03)
[2018-03-13] MEDS: FUROSEMIDE 20 MG TAB PO SCH (09:04)
[2018-03-13] MEDS: CHOLECALCIFEROL (VIT D3) 1000 UNIT TAB PO SCH (09:04)
[2018-03-13] MEDS: POTASSIUM CHLORIDE 10 MEQ CAP PO SCH (09:04)
[2018-03-13] MEDS: CYANOCOBALAMIN 1,000 MCG TAB PO SCH (09:05)
[2018-03-13] MEDS: DOCUSATE SODIUM 50 MG/SENNA 8.6 MG TAB PO SCH ×2 (09:05→21:00)
[2018-03-13] MEDS: AMIODARONE 200 MG TAB PO SCH (09:05)
[2018-03-13] MEDS: FAMOTIDINE 20 MG/2 ML VIAL IV PUSH SCH ×2 (09:10→21:21)
--- NOTE | 2018-03-13 10:37 | HHI.CCPN ---
Subjective Remarks/Hospital Course 77-year-old female presents with complaints of generalized weakness lethargy and headache. She denies any difficulty walking or talking. She denies any vomiting. She is on Coumadin for atrial fibrillation. Patient does have a history of migraines but she has not had a migraine in 20 years and this is unusual for her. The CT of head obtained in the emergency department shows bilateral subdural hematomas, the hemorrhagic along the cerebral falx and compression of the anterior horns of the lateral ventricles which are small in size. Her INR was found to be 7. She has received K Centra, vitamin K, and FFP 's in the emergency department. The case was discussed by ED attending with neurosurgeon on-call who recommended conservative medical management. 03/12: INR corrected after K Centra and fresh frozen plasma. Moves 4 limbs and follows commands. Awoke easily and rapidly this morning from sound sleep, well oriented. 03/13: Patient requests a dietary consultation. Her INR fluctuates wildly related to her leafy green vegetable ingestion. She is a vegetarian so this presents per complications when using a vitamin K analog as a form of anticoagulation. Objective Vital Signs Date Time Temp Pulse Resp B/P (MAP) Pulse Ox O2 Delivery O2 Flow Rate FiO2 03/13/18 08:01 98 21 03/13/18 07:00 88 24 129/60 (83) 03/13/18 07:00 Room Air 03/13/18 04:00 97.3 03/12/18 08:35 2.00 Intake and Output 03/13/18 03/13/18 03/13/18 07:59 15:59 23:59 Intake Total 981 ml Balance 981 ml Result Diagram: 03/12/18 0638 03/12/18 0638 Imaging 1. New, mixed density bilateral subdural hematomas with areas of bilateral high density more acute hemorrhage. 2. There is high density hemorrhage along the cerebral falx as well. 3. Compression of the anterior horns of the lateral ventricles which are smaller in size. There is no midline shift. Objective Remarks GENERAL: Well-nourished, well-developed patient. SKIN: Warm and dry. HEAD: Normocephalic. EYES: No scleral icterus. No injection or drainage. NECK: Supple, trachea midline. Airway widely patent CARDIOVASCULAR: Regular rate and rhythm without murmurs, gallops, or rubs. No JVD. RESPIRATORY: Breath sounds equal bilaterally. No accessory muscle use. Comfortable respiratory pattern. GASTROINTESTINAL: Abdomen soft, non-tender, nondistended. Bowel sounds active. MUSCULOSKELETAL: No cyanosis, or edema. Warm well perfused. Neuro: Oriented 3, alert, cooperative. Moves 4 extremities to command and with 5/5 strength. Cranial nerves intact. I did not test smell. A/P Assessment and Plan Subdural hematoma -Conservative management per neurosurgery Dr. Aponte -Coagulopathy reversal -Received K [facility], FFP's, and vitamin K in the emergency department -Neuro checks to unit protocol -Repeat CT head per neurosurgery -PT and OT eval and treat as tolerated -Follow INR for rebound -Dietary consult to assist with her vegetarian diet. Dyslipidemia -Atorvastatin Coronary artery disease -Diltiazem -Metoprolol -Hold Coumadin anticoagulation due to subdural hematoma Hypertension -Metoprolol -Lasix -Goal SBP less than 140 Bronchiectasis -DuoNeb scheduled and as needed DVT GI prophylaxis -Edi's and SCDs -No pharmacological DVT prophylaxis due to acute intracranial bleed -Pepcid Overall impression: The woman's neurological exam is grossly normal. She protects her airway well and verbalizes fluently. We need to avoid the fluctuations in her INR determination associated with her vegetarian diet and leafy vegetables. Pritesh Dempsey MD March 13, 2018 10:37
--- NOTE | 2018-03-13 13:34 | HHI.NSPN ---
History Chief Complaint: Feeling of fullness across the forehead. Interval History 77-year-old female who presents in the emergency room with complaints of headaches and nausea along with decreased mentation and lethargy and inactivity. Patient relates that she was in a water park a couple weeks ago and slipped and fell back although did not strike her head but since then she has had headaches which have worsened over the past week. relates that she has been less interactive over the past [address] scan of the head on presentation to the ER reveals a bilateral subdural hemorrhage involving the frontoparietal aspect in the right side there is an acute on chronic component and on the left side is mostly chronic component about 10 mm in thickness without any midline shift. She has a supratherapeutic INR and is on chronic Coumadin therapy for atrial fibrillation. 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 Quiroz tried to switch her to Eliquis but she had side effects from that and therefore was switch back to the Coumadin. 03/12/18: Pt awake and alert. She states the headache and nausea that brought her to the hospital has resolved. She Denies any muscle weakness, paresthesias , or visual changes. 03/13: This afternoon when seen the patient is awake and alert sitting up in bed eating lunch. She denies any headache, dizziness, nausea or vomiting but does say she has a fullness across the forehead. She denies any pain, numbness or tingling to the extremities. She is oriented times three and had no sensorimotor deficits upon evaluation. Exam Results 03/11/18 03/11/18 03/12/18 03/12/18 03/13/18 03/13/18 06:00 18:00 06:00 18:00 06:00 18:00 Intake Total 51 ml 1400 ml 1981 ml Output Total 300 ml 400 ml Balance -249 ml 1000 ml 1981 ml Intake Oral 0 ml 600 ml 360 ml IV Total 51 ml 800 ml 1621 ml Output Urine Total 300 ml 400 ml # Voids 5 4 # Bowel Movements 0 0 0 Vital Signs Date Time Temp Pulse Resp B/P (MAP) Pulse Ox O2 Delivery O2 Flow Rate FiO2 03/13/18 08:01 98 21 03/13/18 07:00 88 24 129/60 (83) 98 03/13/18 07:00 98 Room Air 03/13/18 06:00 92 03/13/18 06:00 95 15 149/70 (96) 97 03/13/18 05:00 100 16 133/67 (89) 03/13/18 04:24 91 03/13/18 04:00 85 03/13/18 04:00 97.3 87 24 140/63 (88) 98 03/13/18 03:00 82 136/57 (83) 03/13/18 02:00 60 03/13/18 02:00 60 13 138/98 (111) 98 03/13/18 00:00 97.7 60 20 109/56 (73) 97 03/13/18 00:00 60 03/12/18 22:00 60 16 95/46 (62) 97 03/12/18 22:00 60 03/12/18 21:00 62 133/60 (84) 03/12/18 20:00 59 03/12/18 20:00 97.9 60 19 144/61 (88) 100 03/12/18 20:00 Room Air 03/12/18 18:00 60 18 132/68 (89) 99 03/12/18 18:00 60 03/12/18 17:00 60 20 130/60 (83) 96 03/12/18 16:00 60 22 139/61 (87) 100 03/12/18 16:00 60 22 135/59 (84) 100 03/12/18 16:00 60 03/12/18 15:00 60 20 105/52 (69) 96 03/12/18 14:00 60 03/12/18 14:00 60 22 139/61 (87) 100 03/12/18 13:00 60 20 129/60 (83) 100 03/12/18 12:00 60 03/12/18 12:00 98.1 60 23 135/77 (96) 97 03/12/18 11:00 60 20 140/67 (91) 97 03/12/18 10:00 60 22 138/71 (93) 100 03/12/18 10:00 60 03/12/18 09:00 60 20 137/61 (86) 99 03/12/18 08:35 98 Nasal Cannula 2.00 03/12/18 08:00 60 22 165/71 (102) 100 03/12/18 08:00 60 03/12/18 07:00 98.0 68 20 157/68 (97) 100 03/12/18 07:00 Room Air 03/12/18 06:00 60 03/12/18 06:00 60 19 154/66 (95) 100 03/12/18 05:00 60 153/67 (95) 03/12/18 04:00 97.9 60 15 148/65 (92) 100 03/12/18 04:00 60 03/12/18 03:00 60 154/81 (105) 03/12/18 02:30 60 153/67 (95) 03/12/18 02:00 60 03/12/18 02:00 60 18 171/73 (105) 100 03/12/18 01:00 60 18 142/65 (90) 100 03/12/18 00:00 60 03/12/18 00:00 98.3 60 21 152/64 (93) 100 03/11/18 23:00 60 20 136/63 (87) 96 03/11/18 22:00 60 03/11/18 22:00 Room Air 03/11/18 22:00 98.2 62 15 136/59 (84) 99 03/11/18 21:11 100 03/11/18 17:54 76 17 177/75 (109) 99 Room Air 03/11/18 17:18 100 Room Air 03/11/18 16:42 97.8 60 18 155/66 (95) 98 Physical Examination GENERAL: Awake & alert sitting up in bed eating lunch. Affect normal & readily interacts. No apparent distress. HEENT: Normocephalic, atraumatic. PERRLA, EOMI. MMM & pink, tongue midline to protrusion. MUSCULOSKELETAL: SILVA spontaneously & purposefully w/o difficulty. No evident clubbing or deformity. NEUROLOGICAL: AAOx3. Speech clear & appropriate. Follows commands w/o any difficulty. CN II through XII appear grossly intact. Sensation intact to light touch to all extremities. Motor strength is strong to all major flexion & extension muscle groups. She is noted to have a slight resting tremor & pill rolling to the LUE. Lab, Micro, Other Results Recent Impressions Head CT 03/12/18 0000 Signed Impressions: CONCLUSION: Stable intracranial hemorrhage Head CT 03/11/18 0000 Signed Impressions: CONCLUSION: 1. New, mixed density bilateral subdural hematomas with areas of bilateral hig h density more acute hemorrhage. 2. There is high density hemorrhage along the cerebral falx as well. 3. Compression of the anterior horns of the lateral ventricles which are small er in size. There is no midline shift. Laboratory Tests Test 03/11/18 17:30 03/11/18 20:05 03/11/18 20:20 03/11/18 22:04 White Blood Count 8.8 TH/MM3 Red Blood Count 4.93 MIL/MM3 Hemoglobin 14.8 GM/DL Hematocrit 44.1 % Mean Corpuscular Volume 89.6 FL Mean Corpuscular Hemoglobin 30.0 PG Mean Corpuscular Hemoglobin Concent 33.4 % Red Cell Distribution Width 14.3 % Platelet Count 317 TH/MM3 Mean Platelet Volume 9.0 FL Neutrophils (%) (Auto) 86.1 % Lymphocytes (%) (Auto) 9.7 % Monocytes (%) (Auto) 3.5 % Eosinophils (%) (Auto) 0.3 % Basophils (%) (Auto) 0.4 % Neutrophils # (Auto) 7.6 TH/MM3 Lymphocytes # (Auto) 0.9 TH/MM3 Monocytes # (Auto) 0.3 TH/MM3 Eosinophils # (Auto) 0.0 TH/MM3 Basophils # (Auto) 0.0 TH/MM3 CBC Comment DIFF FINAL Differential Comment Prothrombin Time 72.1 SEC 10.7 SEC Prothromb Time International Ratio 7.2 RATIO 1.1 RATIO Blood Urea Nitrogen 12 MG/DL Creatinine 1.08 MG/DL Random Glucose 123 MG/DL Total Protein 8.7 GM/DL Albumin 3.5 GM/DL Calcium Level 9.3 MG/DL Alkaline Phosphatase 134 U/L Aspartate Amino Transf (AST/SGOT) 23 U/L Alanine Aminotransferase (ALT/SGPT) 27 U/L Total Bilirubin 0.9 MG/DL Sodium Level 135 MEQ/L Potassium Level 3.1 MEQ/L Chloride Level 96 MEQ/L Carbon Dioxide Level 27.9 MEQ/L Anion Gap 11 MEQ/L Estimat Glomerular Filtration Rate 49 ML/MIN Urine Color LIGHT-YELLOW Urine Turbidity CLEAR Urine pH 7.0 Urine Specific [place] 1.003 Urine Protein NEG mg/dL Urine Glucose (UA) NEG mg/dL Urine Ketones NEG mg/dL Urine Occult Blood SMALL Urine Nitrite NEG Urine Bilirubin NEG Urine Urobilinogen LESS THAN 2.0 MG/DL Urine Leukocyte Esterase SMALL Urine RBC LESS THAN 1 /hpf Urine WBC 7 /hpf Urine Squamous Epithelial Cells 1 /hpf Urine Transitional Epithelial Cells 1 /hpf Urine Bacteria RARE /hpf Microscopic Urinalysis Comment CULT NOT INDICATED Activated Partial Thromboplast Time 58.0 SEC Test 03/11/18 22:20 03/12/18 06:38 03/12/18 12:54 03/12/18 17:07 Nasal Screen MRSA (PCR) MRSA NOT DETECTED White Blood Count 6.7 TH/MM3 Red Blood Count 4.17 MIL/MM3 Hemoglobin 12.4 GM/DL Hematocrit 37.0 % Mean Corpuscular Volume 88.9 FL Mean Corpuscular Hemoglobin 29.8 PG Mean Corpuscular Hemoglobin Concent 33.5 % Red Cell Distribution Width 14.4 % Platelet Count 233 TH/MM3 Mean Platelet Volume 8.6 FL Neutrophils (%) (Auto) 72.3 % Lymphocytes (%) (Auto) 17.5 % Monocytes (%) (Auto) 8.3 % Eosinophils (%) (Auto) 1.2 % Basophils (%) (Auto) 0.7 % Neutrophils # (Auto) 4.9 TH/MM3 Lymphocytes # (Auto) 1.2 TH/MM3 Monocytes # (Auto) 0.6 TH/MM3 Eosinophils # (Auto) 0.1 TH/MM3 Basophils # (Auto) 0.0 TH/MM3 CBC Comment DIFF FINAL Differential Comment Prothrombin Time 10.3 SEC 10.3 SEC 10.5 SEC Prothromb Time International Ratio 1.0 RATIO 1.0 RATIO 1.0 RATIO Activated Partial Thromboplast Time 25.0 SEC Blood Urea Nitrogen 11 MG/DL Creatinine 0.88 MG/DL Random Glucose 83 MG/DL Total Protein 6.8 GM/DL Albumin 2.8 GM/DL Calcium Level 8.7 MG/DL Phosphorus Level 3.0 MG/DL Magnesium Level 2.2 MG/DL Alkaline Phosphatase 101 U/L Aspartate Amino Transf (AST/SGOT) 19 U/L Alanine Aminotransferase (ALT/SGPT) 20 U/L Total Bilirubin 1.6 MG/DL Sodium Level 143 MEQ/L Potassium Level 3.3 MEQ/L Chloride Level 104 MEQ/L Carbon Dioxide Level 29.8 MEQ/L Anion Gap 9 MEQ/L Estimat Glomerular Filtration Rate 63 ML/MIN Test 03/13/18 04:37 Prothrombin Time 10.3 SEC Prothromb Time International Ratio 1.0 RATIO Medical Decision Making Impression and Plan Impression: 77-year-old lady with bilateral frontoparietal subdural hemorrhages acute and chronic on the right side and chronic on the left side with some mass-effect although no midline shift. She has Coumadin toxicity with supratherapeutic INR. Corrected now. Follow-up CT scan () of the head is stable bilateral subdural hemorrhages. The patient is doing well and is neurologically intact for self. Plan: Continue with Neuro checks. Increase activity with assistance. She will need to hold off on anticoagulation for the next 10-14 days and will obtain a follow-up CT scan of the head subsequently to ensure continued resolution and no progression of these of subdural hemorrhages. Patient is able to be transferred to a regular med/surg floor from Neurosurgery' s perspective. Jarrett Saravia March 13, 2018 13:34
[2018-03-13] MEDS: ATORVASTATIN 40 MG TAB PO SCH (21:20)
[2018-03-14] VITALS (7 sets, daily range): BP systolic 115–146; BP diastolic 61–66; PULSE 60–64; RESP 16–18; TEMP 97.6–98.2; O2SAT 96–100
[2018-03-14] MEDS: CHLORHEXIDINE GLUCONATE 2 % 1 PACK (2 CLOTHS) TOP SCH (04:00)
[2018-03-14] MEDS: RESP: ALBUTEROL 2.5 MG/IPRATROPIUM 0.5 MG NEB (SCH) INH ×4 (04:18→21:55)
[2018-03-14 07:39] LABS: INTERNATIONAL NORMALIZED RATIO 1.1 RATIO; PROTHROMBIN TIME - PATIENT 11.3 SEC (9.8-11.6)
[2018-03-14] MEDS: AMIODARONE 200 MG TAB PO SCH (08:17)
[2018-03-14] MEDS: DOCUSATE SODIUM 50 MG/SENNA 8.6 MG TAB PO SCH ×2 (08:17→20:40)
[2018-03-14] MEDS: METOPROLOL TARTRATE 25 MG TAB PO SCH ×2 (08:18→20:40)
[2018-03-14] MEDS: FUROSEMIDE 20 MG TAB PO SCH (08:18)
[2018-03-14] MEDS: CHOLECALCIFEROL (VIT D3) 1000 UNIT TAB PO SCH (08:18)
[2018-03-14] MEDS: CYANOCOBALAMIN 1,000 MCG TAB PO SCH (08:18)
[2018-03-14] MEDS: DILTIAZEM-CD 120 MG CAP ER PO SCH (08:20)
[2018-03-14] MEDS: POTASSIUM CHLORIDE 10 MEQ CAP PO SCH (08:20)
[2018-03-14] MEDS: SODIUM CHLORIDE 0.9% FLUSH 10 ML FLUSH IV FLUSH SCH ×2 (08:24→20:40)
[2018-03-14] MEDS: FAMOTIDINE 20 MG/2 ML VIAL IV PUSH SCH ×2 (08:25→20:40)
[2018-03-14] MEDS: SODIUM CHLOR 0.9% 1000 ML INJ 1,000 ML IV SCH (08:27)
[2018-03-14 10:55] LABS: AUTOMATED NEUTROPHIL # 4.9 TH/MM3 (1.8-7.7); BASOPHIL # 0.1 TH/MM3 (0-0.2); BASOPHIL % 0.8 % (0.0-2.0); EOSINOPHIL # 0.3 TH/MM3 (0-0.4); EOSINOPHIL % 4.1 % (0.0-4.0); HEMATOCRIT 34.2 % (35.0-46.0); HEMOGLOBIN 11.6 GM/DL (11.6-15.3); LYMPH % 18.9 % (9.0-44.0); LYMPHOCYTE # 1.3 TH/MM3 (1.0-4.8); MEAN CELL VOLUME 89.8 FL (80.0-100.0); MEAN CORPUSCULAR HEMOGLOBIN 30.5 PG (27.0-34.0); MEAN CORPUSCULAR HGB CONC 33.9 % (32.0-36.0); MEAN PLATELET VOLUME 8.6 FL (7.0-11.0); MONO % 6.7 % (0.0-8.0); MONOCYTE # 0.5 TH/MM3 (0-0.9); NEUT % 69.5 % (16.0-70.0); PLATELET COUNT 247 TH/MM3 (150-450); RED BLOOD COUNT 3.81 MIL/MM3 (4.00-5.30); RED CELL DISTRIBUTION WIDTH 14.4 % (11.6-17.2)
[2018-03-14 11:21] LABS: BICARBONATE 27.2 MEQ/L (21.0-32.0); CALCIUM 8.5 MG/DL (8.5-10.1); CREATININE 0.95 MG/DL (0.50-1.00)
[2018-03-14] MEDS: ACETAMINOPHEN 325 MG TAB PO PRN (13:00)
--- NOTE | 2018-03-14 13:48 | HHI.NSPN ---
History Chief Complaint: Slight headache that is getting better. Interval History 77-year-old female who presents in the emergency room with complaints of headaches and nausea along with decreased mentation and lethargy and inactivity. Patient relates that she was in a water park a couple weeks ago and slipped and fell back although did not strike her head but since then she has had headaches which have worsened over the past week. relates that she has been less interactive over the past [address] scan of the head on presentation to the ER reveals a bilateral subdural hemorrhage involving the frontoparietal aspect in the right side there is an acute on chronic component and on the left side is mostly chronic component about 10 mm in thickness without any midline shift. She has a supratherapeutic INR and is on chronic Coumadin therapy for atrial fibrillation. 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 Quiroz tried to switch her to Eliquis but she had side effects from that and therefore was switch back to the Coumadin. 03/12/18: Pt awake and alert. She states the headache and nausea that brought her to the hospital has resolved. She Denies any muscle weakness, paresthesias , or visual changes. 03/13: This afternoon when seen the patient is awake and alert sitting up in bed eating lunch. She denies any headache, dizziness, nausea or vomiting but does say she has a fullness across the forehead. She denies any pain, numbness or tingling to the extremities. She is oriented times three and had no sensorimotor deficits upon evaluation. 03/14: The patient was transferred to a regular med/surg floor from [facility] yesterday. She is awake and sitting up in the bed watching TV. She does say that she has a headache for which she received acetaminophen and it is getting better. She denies any dizziness or nausea. She has no pain, numbness or tingling to the extremities. She is neurologically intact upon evaluation. Exam Results 03/12/18 03/12/18 03/13/18 03/13/18 03/14/18 03/14/18 06:00 18:00 06:00 18:00 06:00 18:00 Intake Total 51 ml 1400 ml 1981 ml 816 ml Output Total 300 ml 400 ml Balance -249 ml 1000 ml 1981 ml 816 ml Intake Oral 0 ml 600 ml 360 ml 200 ml IV Total 51 ml 800 ml 1621 ml 616 ml Output Urine Total 300 ml 400 ml # Voids 5 4 4 # Bowel Movements 0 0 0 Vital Signs Date Time Temp Pulse Resp B/P (MAP) Pulse Ox O2 Delivery O2 Flow Rate FiO2 03/14/18 11:55 98.2 60 16 127/61 (83) 98 03/14/18 09:10 98 21 03/14/18 08:37 96 Room Air 03/14/18 08:00 98.2 64 16 115/62 (79) 96 03/14/18 04:53 Room Air 03/14/18 03:55 98.0 60 18 141/63 (89) 97 03/13/18 23:29 98.0 75 20 133/67 (89) 98 03/13/18 22:06 98 21 03/13/18 20:00 98.5 105 20 149/66 (93) 99 03/13/18 16:00 98.1 60 16 125/59 (81) 100 03/13/18 16:00 60 03/13/18 12:00 97.9 62 22 129/58 (81) 100 03/13/18 12:00 62 03/13/18 10:00 114 03/13/18 08:01 98 21 03/13/18 08:00 108 03/13/18 08:00 97.9 108 19 131/63 (85) 99 03/13/18 07:00 88 24 129/60 (83) 98 03/13/18 07:00 98 Room Air 03/13/18 06:00 92 03/13/18 06:00 95 15 149/70 (96) 97 03/13/18 05:00 100 16 133/67 (89) 03/13/18 04:24 91 03/13/18 04:00 85 03/13/18 04:00 97.3 87 24 140/63 (88) 98 03/13/18 03:00 82 136/57 (83) 03/13/18 02:00 60 03/13/18 02:00 60 13 138/98 (111) 98 03/13/18 00:00 97.7 60 20 109/56 (73) 97 03/13/18 00:00 60 03/12/18 22:00 60 16 95/46 (62) 97 03/12/18 22:00 60 03/12/18 21:00 62 133/60 (84) 03/12/18 20:00 59 03/12/18 20:00 97.9 60 19 144/61 (88) 100 03/12/18 20:00 Room Air 03/12/18 18:00 60 18 132/68 (89) 99 03/12/18 18:00 60 03/12/18 17:00 60 20 130/60 (83) 96 03/12/18 16:00 60 22 139/61 (87) 100 03/12/18 16:00 60 22 135/59 (84) 100 03/12/18 16:00 60 03/12/18 15:00 60 20 105/52 (69) 96 03/12/18 14:00 60 03/12/18 14:00 60 22 139/61 (87) 100 03/12/18 13:00 60 20 129/60 (83) 100 03/12/18 12:00 60 03/12/18 12:00 98.1 60 23 135/77 (96) 97 03/12/18 11:00 60 20 140/67 (91) 97 03/12/18 10:00 60 22 138/71 (93) 100 03/12/18 10:00 60 03/12/18 09:00 60 20 137/61 (86) 99 03/12/18 08:35 98 Nasal Cannula 2.00 03/12/18 08:00 60 22 165/71 (102) 100 03/12/18 08:00 60 03/12/18 07:00 98.0 68 20 157/68 (97) 100 03/12/18 07:00 Room Air 03/12/18 06:00 60 03/12/18 06:00 60 19 154/66 (95) 100 03/12/18 05:00 60 153/67 (95) 03/12/18 04:00 97.9 60 15 148/65 (92) 100 03/12/18 04:00 60 03/12/18 03:00 60 154/81 (105) 03/12/18 02:30 60 153/67 (95) 03/12/18 02:00 60 03/12/18 02:00 60 18 171/73 (105) 100 03/12/18 01:00 60 18 142/65 (90) 100 03/12/18 00:00 60 03/12/18 00:00 98.3 60 21 152/64 (93) 100 03/11/18 23:00 60 20 136/63 (87) 96 03/11/18 22:00 60 03/11/18 22:00 Room Air 03/11/18 22:00 98.2 62 15 136/59 (84) 99 03/11/18 21:11 100 03/11/18 17:54 76 17 177/75 (109) 99 Room Air 03/11/18 17:18 100 Room Air 03/11/18 16:42 97.8 60 18 155/66 (95) 98 Physical Examination GENERAL: Awake & alert sitting up in bed watching TV. Affect normal & readily interacts. No apparent distress. HEENT: Normocephalic, atraumatic. PERRLA, EOMI. MMM & pink, tongue midline to protrusion. MUSCULOSKELETAL: SILVA spontaneously & purposefully w/o difficulty. No evident clubbing or deformity. NEUROLOGICAL: AAOx3. Speech clear & appropriate. Follows commands w/o any difficulty. CN II through XII appear grossly intact. Sensation intact to light touch to all extremities. Motor strength is strong to all major flexion & extension muscle groups. She is noted to have a slight resting tremor & pill rolling to the LUE. Lab, Micro, Other Results Recent Impressions Head CT 03/12/18 0000 Signed Impressions: CONCLUSION: Stable intracranial hemorrhage Laboratory Tests Test 03/11/18 17:30 03/11/18 20:05 03/11/18 20:20 03/11/18 22:04 White Blood Count 8.8 TH/MM3 Red Blood Count 4.93 MIL/MM3 Hemoglobin 14.8 GM/DL Hematocrit 44.1 % Mean Corpuscular Volume 89.6 FL Mean Corpuscular Hemoglobin 30.0 PG Mean Corpuscular Hemoglobin Concent 33.4 % Red Cell Distribution Width 14.3 % Platelet Count 317 TH/MM3 Mean Platelet Volume 9.0 FL Neutrophils (%) (Auto) 86.1 % Lymphocytes (%) (Auto) 9.7 % Monocytes (%) (Auto) 3.5 % Eosinophils (%) (Auto) 0.3 % Basophils (%) (Auto) 0.4 % Neutrophils # (Auto) 7.6 TH/MM3 Lymphocytes # (Auto) 0.9 TH/MM3 Monocytes # (Auto) 0.3 TH/MM3 Eosinophils # (Auto) 0.0 TH/MM3 Basophils # (Auto) 0.0 TH/MM3 CBC Comment DIFF FINAL Differential Comment Prothrombin Time 72.1 SEC 10.7 SEC Prothromb Time International Ratio 7.2 RATIO 1.1 RATIO Blood Urea Nitrogen 12 MG/DL Creatinine 1.08 MG/DL Random Glucose 123 MG/DL Total Protein 8.7 GM/DL Albumin 3.5 GM/DL Calcium Level 9.3 MG/DL Alkaline Phosphatase 134 U/L Aspartate Amino Transf (AST/SGOT) 23 U/L Alanine Aminotransferase (ALT/SGPT) 27 U/L Total Bilirubin 0.9 MG/DL Sodium Level 135 MEQ/L Potassium Level 3.1 MEQ/L Chloride Level 96 MEQ/L Carbon Dioxide Level 27.9 MEQ/L Anion Gap 11 MEQ/L Estimat Glomerular Filtration Rate 49 ML/MIN Urine Color LIGHT-YELLOW Urine Turbidity CLEAR Urine pH 7.0 Urine Specific [place] 1.003 Urine Protein NEG mg/dL Urine Glucose (UA) NEG mg/dL Urine Ketones NEG mg/dL Urine Occult Blood SMALL Urine Nitrite NEG Urine Bilirubin NEG Urine Urobilinogen LESS THAN 2.0 MG/DL Urine Leukocyte Esterase SMALL Urine RBC LESS THAN 1 /hpf Urine WBC 7 /hpf Urine Squamous Epithelial Cells 1 /hpf Urine Transitional Epithelial Cells 1 /hpf Urine Bacteria RARE /hpf Microscopic Urinalysis Comment CULT NOT INDICATED Activated Partial Thromboplast Time 58.0 SEC Test 03/11/18 22:20 03/12/18 06:38 03/12/18 12:54 03/12/18 17:07 Nasal Screen MRSA (PCR) MRSA NOT DETECTED White Blood Count 6.7 TH/MM3 Red Blood Count 4.17 MIL/MM3 Hemoglobin 12.4 GM/DL Hematocrit 37.0 % Mean Corpuscular Volume 88.9 FL Mean Corpuscular Hemoglobin 29.8 PG Mean Corpuscular Hemoglobin Concent 33.5 % Red Cell Distribution Width 14.4 % Platelet Count 233 TH/MM3 Mean Platelet Volume 8.6 FL Neutrophils (%) (Auto) 72.3 % Lymphocytes (%) (Auto) 17.5 % Monocytes (%) (Auto) 8.3 % Eosinophils (%) (Auto) 1.2 % Basophils (%) (Auto) 0.7 % Neutrophils # (Auto) 4.9 TH/MM3 Lymphocytes # (Auto) 1.2 TH/MM3 Monocytes # (Auto) 0.6 TH/MM3 Eosinophils # (Auto) 0.1 TH/MM3 Basophils # (Auto) 0.0 TH/MM3 CBC Comment DIFF FINAL Differential Comment Prothrombin Time 10.3 SEC 10.3 SEC 10.5 SEC Prothromb Time International Ratio 1.0 RATIO 1.0 RATIO 1.0 RATIO Activated Partial Thromboplast Time 25.0 SEC Blood Urea Nitrogen 11 MG/DL Creatinine 0.88 MG/DL Random Glucose 83 MG/DL Total Protein 6.8 GM/DL Albumin 2.8 GM/DL Calcium Level 8.7 MG/DL Phosphorus Level 3.0 MG/DL Magnesium Level 2.2 MG/DL Alkaline Phosphatase 101 U/L Aspartate Amino Transf (AST/SGOT) 19 U/L Alanine Aminotransferase (ALT/SGPT) 20 U/L Total Bilirubin 1.6 MG/DL Sodium Level 143 MEQ/L Potassium Level 3.3 MEQ/L Chloride Level 104 MEQ/L Carbon Dioxide Level 29.8 MEQ/L Anion Gap 9 MEQ/L Estimat Glomerular Filtration Rate 63 ML/MIN Test 03/13/18 04:37 03/14/18 07:00 03/14/18 10:20 Prothrombin Time 10.3 SEC 11.3 SEC Prothromb Time International Ratio 1.0 RATIO 1.1 RATIO White Blood Count 7.0 TH/MM3 Red Blood Count 3.81 MIL/MM3 Hemoglobin 11.6 GM/DL Hematocrit 34.2 % Mean Corpuscular Volume 89.8 FL Mean Corpuscular Hemoglobin 30.5 PG Mean Corpuscular Hemoglobin Concent 33.9 % Red Cell Distribution Width 14.4 % Platelet Count 247 TH/MM3 Mean Platelet Volume 8.6 FL Neutrophils (%) (Auto) 69.5 % Lymphocytes (%) (Auto) 18.9 % Monocytes (%) (Auto) 6.7 % Eosinophils (%) (Auto) 4.1 % Basophils (%) (Auto) 0.8 % Neutrophils # (Auto) 4.9 TH/MM3 Lymphocytes # (Auto) 1.3 TH/MM3 Monocytes # (Auto) 0.5 TH/MM3 Eosinophils # (Auto) 0.3 TH/MM3 Basophils # (Auto) 0.1 TH/MM3 CBC Comment DIFF FINAL Differential Comment Blood Urea Nitrogen 15 MG/DL Creatinine 0.95 MG/DL Random Glucose 115 MG/DL Calcium Level 8.5 MG/DL Sodium Level 142 MEQ/L Potassium Level 3.5 MEQ/L Chloride Level 106 MEQ/L Carbon Dioxide Level 27.2 MEQ/L Anion Gap 9 MEQ/L Estimat Glomerular Filtration Rate 57 ML/MIN Medical Decision Making Impression and Plan Impression: 77-year-old lady with bilateral frontoparietal subdural hemorrhages acute and chronic on the right side and chronic on the left side with some mass-effect although no midline shift. She has Coumadin toxicity with supratherapeutic INR. Corrected now. Follow-up CT scan () of the head is stable bilateral subdural hemorrhages. The patient continues to do well and remains intact neurologically. Reviewed labs for today. Sodium 142. Decrease in eGFR. Plan: Continue with Neuro checks. Increase activity with assistance. She will need to hold off on anticoagulation for the next 10-14 days and will obtain a follow-up CT scan of the head subsequently to ensure continued resolution and no progression of these of subdural hemorrhages. Jarrett Saravia March 14, 2018 13:48
--- NOTE | 2018-03-14 15:42 | HHI.PR ---
Subjective Remarks Pt is a pleasant 77 y/o F on chronic coumadin for Atrial Fibrillation. On presentation to the ER, pt's INR 7.2 (03/11). CT brain (03/11/18) showed SDH. Pt is being followed by NSX. Conservative Mgmt. Pt voices NO new complaints. Pt is tolerating PO intake without n/v/d. Objective Vitals Vital Signs Date Time Temp Pulse Resp B/P (MAP) Pulse Ox O2 Delivery O2 Flow Rate FiO2 03/14/18 11:55 98.2 60 16 127/61 (83) 98 03/14/18 09:10 98 21 03/14/18 08:37 96 Room Air 03/14/18 08:00 98.2 64 16 115/62 (79) 96 03/14/18 04:53 Room Air 03/14/18 03:55 98.0 60 18 141/63 (89) 97 03/13/18 23:29 98.0 75 20 133/67 (89) 98 03/13/18 22:06 98 21 03/13/18 20:00 98.5 105 20 149/66 (93) 99 03/13/18 16:00 98.1 60 16 125/59 (81) 100 03/13/18 16:00 60 Result Diagram: 03/14/18 1020 03/14/18 1020 Imaging Last Impressions Head CT 03/12/18 0000 Signed Impressions: CONCLUSION: Stable intracranial hemorrhage Objective Remarks GENERAL: This is a well-nourished, well-developed patient, in no apparent distress. CARDIOVASCULAR: Regular rate and rhythm without murmurs, gallops, or rubs. RESPIRATORY: Clear to auscultation. Breath sounds equal bilaterally. No wheezes , rales, or rhonchi. GASTROINTESTINAL: Abdomen soft, non-tender, nondistended. Normal active bowel sounds MUSCULOSKELETAL: Extremities without clubbing, cyanosis, or edema. NEURO: Alert & Oriented x3, SILVA A/P Problem List: (1) Subdural hematoma ICD Codes: S06.5X9A - Traumatic subdural hemorrhage with loss of consciousness of unspecified duration, initial encounter Status: Acute Plan: - comgmt with NSX - conservative mgmt - DVT prophylaxis - supportive care (2) Paroxysmal a-fib ICD Codes: I48.0 - Paroxysmal atrial fibrillation Status: Chronic Plan: - cardizem, metoprolol, amiodarone - observe on telemetry (3) Hypertension ICD Codes: I10 - Essential (primary) hypertension Status: Chronic Plan: - cardizem, metoprolol (4) COPD exacerbation ICD Codes: J44.1 - Chronic obstructive pulmonary disease with (acute) exacerbation Status: Chronic Plan: - duonebs prn Problem Qualifiers (1) Hypertension: Qualified Codes: I10 - Essential (primary) hypertension Matheus Mcleod DO March 14, 2018 15:42
[2018-03-14] MEDS: ATORVASTATIN 40 MG TAB PO SCH (20:40)
[2018-03-15] MEDS: RESP: ALBUTEROL 2.5 MG/IPRATROPIUM 0.5 MG NEB (SCH) INH ×2 (03:32→08:37)
[2018-03-15] MEDS: CHLORHEXIDINE GLUCONATE 2 % 1 PACK (2 CLOTHS) TOP SCH (04:00)
[2018-03-15 07:38] LABS: INTERNATIONAL NORMALIZED RATIO 1.1 RATIO; PROTHROMBIN TIME - PATIENT 11.2 SEC (9.8-11.6)
[2018-03-15 08:00] VITALS: BP 146/66; PULSE 60; RESP 16; TEMP 98.5; O2SAT 98
[2018-03-15] MEDS: DILTIAZEM-CD 120 MG CAP ER PO SCH (08:55)
[2018-03-15] MEDS: METOPROLOL TARTRATE 25 MG TAB PO SCH (08:55)
[2018-03-15] MEDS: DOCUSATE SODIUM 50 MG/SENNA 8.6 MG TAB PO SCH (08:56)
[2018-03-15] MEDS: CHOLECALCIFEROL (VIT D3) 1000 UNIT TAB PO SCH (08:56)
[2018-03-15] MEDS: AMIODARONE 200 MG TAB PO SCH (08:56)
[2018-03-15] MEDS: CYANOCOBALAMIN 1,000 MCG TAB PO SCH (08:57)
[2018-03-15] MEDS: FUROSEMIDE 20 MG TAB PO SCH (08:57)
[2018-03-15] MEDS: FAMOTIDINE 20 MG/2 ML VIAL IV PUSH SCH (08:58)
[2018-03-15] MEDS: SODIUM CHLORIDE 0.9% FLUSH 10 ML FLUSH IV FLUSH SCH (08:58)
[2018-03-15] MEDS: POTASSIUM CHLORIDE 10 MEQ CAP PO SCH (09:18)
--- NOTE | 2018-03-15 09:44 | HHI.PR ---
Subjective Remarks ambulating. eager for d/c Objective Vitals heart reg lung cta abd s/nt ext no edema Vital Signs Date Time Temp Pulse Resp B/P (MAP) Pulse Ox O2 Delivery O2 Flow Rate FiO2 03/15/18 09:10 Room Air 03/15/18 08:00 98.5 60 16 146/66 (92) 98 03/14/18 20:18 60 03/14/18 20:00 97.8 61 18 146/66 (92) 100 03/14/18 15:44 97.6 60 18 136/62 (86) 97 03/14/18 11:55 98.2 60 16 127/61 (83) 98 Result Diagram: 03/14/18 1020 03/14/18 1020 Imaging Last Impressions Head CT 03/12/18 0000 Signed Impressions: CONCLUSION: Stable intracranial hemorrhage A/P Problem List: (1) Subdural hematoma ICD Codes: S06.5X9A - Traumatic subdural hemorrhage with loss of consciousness of unspecified duration, initial encounter Status: Acute Plan: 1. s/p acute/chronic sdh bialterally pt presented with coumadin toxicity her f/u ct head stable d/c home today with no coumadin until ok with nsg f/u nsg (2) Paroxysmal a-fib ICD Codes: I48.0 - Paroxysmal atrial fibrillation Status: Chronic Plan: - cardizem, metoprolol, amiodarone - observe on telemetry (3) Hypertension ICD Codes: I10 - Essential (primary) hypertension Status: Chronic Plan: - cardizem, metoprolol (4) COPD exacerbation ICD Codes: J44.1 - Chronic obstructive pulmonary disease with (acute) exacerbation Status: Chronic Plan: - duonebs prn Problem Qualifiers (1) Hypertension: Qualified Codes: I10 - Essential (primary) hypertension Abhishek Bertrand MD March 15, 2018 09:44
--- NOTE | 2018-03-15 09:47 | HHI.DCPOC ---
Discharge Care Plan Diagnosis: (1) Subdural hematoma (2) Supratherapeutic INR (3) Paroxysmal a-fib Goals to Promote Your Health * To prevent worsening of your condition and complications * To maintain your health at the optimal level Directions to Meet Your Goals Take your medications as prescribed Follow your dietary instruction Follow activity as directed Keep your appointments as scheduled Take your immunizations and boosters as scheduled If your symptoms worsen call your PCP, if no PCP go to Urgent Care Center or Emergency Room Smoking is Dangerous to Your Health. Avoid second hand smoke Call the 24-hour hour crisis hotline for domestic abuse at Abhishek Bertrand MD March 15, 2018 09:47
[2018-03-15 10:09] VITALS: PULSE 61
--- NOTE | 2018-03-15 10:55 | HHI.NSPN ---
History Chief Complaint: Slight headache that is getting better. Interval History 77-year-old female who presents in the emergency room with complaints of headaches and nausea along with decreased mentation and lethargy and inactivity. Patient relates that [place] weeks ago and slipped and fell back although did not strike her head but since then she has had headaches which have worsened over the past week. relates that she has been less interactive over the past [address] scan of the head on presentation to the ER reveals a bilateral subdural hemorrhage involving the frontoparietal aspect in the right side there is an acute on chronic component and on the left side is mostly chronic component about 10 mm in thickness without any midline shift. She has a supratherapeutic INR and is on chronic Coumadin therapy for atrial fibrillation. She and her relate that there are vegetarian's and her director of pediatric rehabilitation Dr. Quiroz tried to switch her to Eliquis but she had side effects from that and therefore was switch back to the Coumadin. 03/12/18: Pt awake and alert. She states the headache and nausea that brought her to the hospital has resolved. She Denies any muscle weakness, paresthesias , or visual changes. 03/15/18: Pt awake and alert. States she is doing well. No numbness or tingling in extremities. No weakness in extremities. Discussed restrictions and follow up care. Review of Systems General: Negative for: fever, chills, insomnia Respiratory: Negative for: shortness of breath, cough, sputum Cardiovascular: Negative for: chest pain Gastrointestinal: Negative for: nausea, vomitting, diarrhea, constipation Exam Results Vital Signs Date Time Temp Pulse Resp B/P (MAP) Pulse Ox O2 Delivery O2 Flow Rate FiO2 03/15/18 10:09 61 03/15/18 09:10 Room Air 03/15/18 08:00 98.5 16 146/66 (92) 98 03/14/18 09:10 21 03/12/18 08:35 2.00 Physical Examination GENERAL: Awake & alert sitting up in bed. Affect normal & readily interacts. No apparent distress. HEENT: Normocephalic, atraumatic. PERRLA, EOMI. MMM & pink, tongue midline to protrusion. MUSCULOSKELETAL: SILVA spontaneously & purposefully w/o difficulty. No evident clubbing or deformity. NEUROLOGICAL: AAOx3. Speech clear & appropriate. Follows commands w/o any difficulty. CN II through XII appear grossly intact. Sensation intact to light touch to all extremities. Motor strength is strong to all major flexion & extension muscle groups. She is noted to have a slight resting tremor & pill rolling to the LUE. Lab, Micro, Other Results Last Impressions Head CT 03/12/18 0000 Signed Impressions: CONCLUSION: Stable intracranial hemorrhage Laboratory Tests Test 03/15/18 05:19 Prothrombin Time 11.2 SEC Prothromb Time International Ratio 1.1 RATIO Medical Decision Making Impression and Plan A: 77-year-old lady with bilateral frontoparietal subdural hemorrhages acute and chronic on the right side and chronic on the left side with some mass- effect although no midline shift. She has Coumadin toxicity with supratherapeutic INR. Corrected now. P: Neurosurgically stable to d/c home Discussed restrictions in detail. No coumadin or anticoagulation. Follow up CT head in two weeks. Call office for appt. Arjun Garcia March 15, 2018 10:55 am
[2018-03-15] MEDS: ACETAMINOPHEN 325 MG TAB PO PRN (11:41)
== END 2018-03-15 12:55 | disposition home or self-care (01) | DRG 64 ==
LOC: NEPC 16:34 → NEDA 19:58 → N03A 22:07 → N05B 03-13 18:39
PROVIDERS: ADMIT Internal Medicine Critical Care Medicine; ATTEND Internal Medicine Critical Care Medicine
DX: I62.02 Nontraumatic subacute subdural hemorrhage (principal); G93.5 Compression of brain; D68.9 Coagulation defect, unspecified; G20 Parkinson's disease; I50.9 Heart failure, unspecified; I11.0 Hypertensive heart disease with heart failure; I48.0 Paroxysmal atrial fibrillation; J44.1 Chronic obstructive pulmonary disease with (acute) exacerbation; G25.9 Extrapyramidal and movement disorder, unspecified; T45.511A Poisoning by anticoagulants, accidental (unintentional), initial encounter; E78.00 Pure hypercholesterolemia, unspecified; I70.0 Atherosclerosis of aorta; E78.5 Hyperlipidemia, unspecified; K59.00 Constipation, unspecified; I25.10 Atherosclerotic heart disease of native coronary artery without angina pectoris; J45.909 Unspecified asthma, uncomplicated; M51.36 Other intervertebral disc degeneration, lumbar region; Z79.01 Long term (current) use of anticoagulants; Z90.5 Acquired absence of kidney; Z95.0 Presence of cardiac pacemaker
CPT/HCPCS: 70450; 80048; 80053; 81001; 83735; 84100; 85025; 85610; 85730; 86850; 86900; 86901; 87641; 94640; 94664; 96374; 96375; J0780; J1200; J3430; J7030; J7050

== ENCOUNTER 2018-04-09 09:19 | Day surgery (SDC) | payer MEDICARE ==
[~2018-04-09] VITALS: Ht 167.6 cm; Wt 70.0 kg
[~2018-04-09 09:19] MED LIST changes: +AMIO200T PO; -ASPI1TAB57 PO; -WARF-23 PO
[2018-04-09 09:44] VITALS: BP 177/78; PULSE 59; RESP 18; TEMP 98; O2SAT 99
[2018-04-09] MEDS ORDERED: POVIDONE IODINE 5% (ANTISEPSIS KIT) 4 APPLICATIONS EACH NARE PRN (10:15)
[2018-04-09] MEDS ORDERED: CHLORHEXIDINE GLUCONATE 2 % 1 PACK (2 CLOTHS) TOPICAL PRN (10:15)
[2018-04-09] MEDS ORDERED: LACTATED RINGER'S 1000 ML IV PRN (10:15)
[2018-04-09] MEDS ORDERED: METOPROLOL TARTRATE 25 MG TAB PO PRN (10:15)
[2018-04-09] MEDS ORDERED: SODIUM CHLORID 0.9% 500 ML IV PRN (10:15)
[2018-04-09] MEDS ORDERED: DEXT 5%-NACL 0.45% 1000 ML INJ 1,000 ML IV SCH (10:30)
[2018-04-09 10:48] LABS: AUTOMATED NEUTROPHIL # 4.7 TH/MM3 (1.8-7.7); BASOPHIL % 0.6 % (0.0-2.0); EOSINOPHIL # 0.6 TH/MM3 (0-0.4); EOSINOPHIL % 7.8 % (0.0-4.0); HEMATOCRIT 36.3 % (35.0-46.0); HEMOGLOBIN 12.6 GM/DL (11.6-15.3); LYMPHOCYTE # 1.2 TH/MM3 (1.0-4.8); MEAN CELL VOLUME 90.9 FL (80.0-100.0); MEAN CORPUSCULAR HEMOGLOBIN 31.6 PG (27.0-34.0); MEAN CORPUSCULAR HGB CONC 34.7 % (32.0-36.0); MEAN PLATELET VOLUME 9.4 FL (7.0-11.0); MONO % 8.8 % (0.0-8.0); MONOCYTE # 0.6 TH/MM3 (0-0.9); NEUT % 65.8 % (16.0-70.0); PLATELET COUNT 246 TH/MM3 (150-450); RED CELL DISTRIBUTION WIDTH 13.2 % (11.6-17.2); WHITE BLOOD COUNT 7.1 TH/MM3 (4.0-11.0)
[2018-04-09 10:58] LABS: INTERNATIONAL NORMALIZED RATIO 1.1 RATIO; PROTHROMBIN TIME - PATIENT 10.7 SEC (9.8-11.6)
[2018-04-09 11:08] LABS: BICARBONATE 28.2 MEQ/L (21.0-32.0); CALCIUM 8.6 MG/DL (8.5-10.1); CREATININE 0.95 MG/DL (0.50-1.00)
--- NOTE | 2018-04-09 12:31 | EKG ---
Date Performed: 04/09/2018 Time Performed: 10:13:44 PTAGE: 77 years EKG: ELECTRONIC ATRIAL PACEMAKER ABNORMAL RHYTHM ECG PREVIOUS TRACING : 11/20/2017 09.17 Compared to prior study, atrial pacing is new. DOCTOR: Brandt Quiroz Interpretating Date/Time 04/09/2018 12:30:01
[2018-04-09] MEDS ORDERED: RESP: ALBUTEROL 2.5 MG/3 ML NEB (PRN) NEB (13:00)
[2018-04-09] MEDS ORDERED: DO NOT ADM ANY ANTICOAGULANT DRUGS PRN (13:13)
--- NOTE | 2018-04-09 13:13 | MP ---
cc: Hallie Norris MD DATE OF OPERATION: 04/09/2018 PROCEDURES: Fiberoptic bronchoscopy with brushings, washings, and lavage. PREOPERATIVE DIAGNOSIS: Bilateral bronchiectasis and history of MINAL infection. ANESTHESIA: General. SURGEON: Moreno Norris MD PROCEDURE AND FINDINGS: The patient was sedated with IV propofol and an LMA was used and placed against the larynx. The Olympus IT-180 bronchoscope was used to visualize the bronchi. The scope was advanced via the LMA into the larynx. The vocal cords were anesthetized with 3 mL of 2% Xylocaine and the scope was then advanced towards the trachea. The vocal cords, trachea, and bhavna appeared normal. The scope was then advanced into the right mainstem and right upper lobe segmental bronchi. These bronchi demonstrated mild endobronchitis with mucoid secretions and these were suctioned out and saline washings were done. Next, the right middle lobe segmental bronchi was visualized which demonstrated a few mucoid secretions and mild endobronchitis. No endobronchial lesions were seen. Next, the right lower lobe segmental bronchi were visualized and these bronchi demonstrated mucosal edema and moderate endobronchitis and mucoid secretions and these were suctioned out. Saline washings were done. Brushings were done from the right lower lobe area for micro and cytology and saline lavage was carried out from here. The scope was then advanced into the left mainstem and left upper lobe segmental bronchi. These bronchi demonstrated a few mucoid secretions and mild endobronchitis and the secretions were suctioned out. Saline washings were done. Next, the left lower lobe segmental bronchi were visualized, which demonstrated mild endobronchitis and mucoid secretions and mucosal edema. Saline washings and lavage were done. No endobronchial lesions were seen here. The procedure was then terminated. The patient tolerated the procedure well. V. Moreno Norris MD VJD/DL , 12:56 PM , 01:12 PM
--- NOTE | 2018-04-09 14:23 | RADRPT ---
EXAM DATE: 04/09/2018 1:53 PM EDT AGE/SEX: 77 years / Female INDICATIONS: Post bronchoscopy, coughing CLINICAL DATA: This is the patient's initial encounter. Patient reports that signs and symptoms have been present for 1 day and indicates a pain score of 4/10. MEDICAL/SURGICAL HISTORY: Cardiovascular disease. Pacemaker. COMPARISON: [facility], CHEST SINGLE AP, 04/30/2017. . FINDINGS: There are moderate COPD changes within the pulmonary parenchyma. The cardiac and mediastinal contours are within normal limits. There is a transvenous pacer in place. The visualized bony structures are grossly intact. CONCLUSION: COPD changes. Similar in appearance to previous examination dated 04/30/2017. Electronically signed by: Nando Cadet MD 04/09/2018 2:22 PM EDT
[2018-04-09 14:35] VITALS: BP 120/53; PULSE 65; RESP 18; TEMP 97.9; O2SAT 95
[2018-04-09 15:00] VITALS: BP 118/60; PULSE 65; RESP 18; TEMP 97.9; O2SAT 95
== END 2018-04-09 16:00 | disposition home or self-care (01) ==
LOC: HRIP 09:19 → HSDC 09:19
PROVIDERS: ATTEND Internal Medicine Pulmonary Disease
DX: J47.9 Bronchiectasis, uncomplicated (principal); J40 Bronchitis, not specified as acute or chronic; B95.7 Other staphylococcus as the cause of diseases classified elsewhere; I11.0 Hypertensive heart disease with heart failure; I50.9 Heart failure, unspecified; Z01.810 Encounter for preprocedural cardiovascular examination
CPT/HCPCS: 31623; 71045; 80048; 85025; 85610; 85730; 86403; 87015; 87070; 87071; 87102; 87116; 87147; 87186; 87205; 87206; 88112; 88305; 88312; 93005